=== PATIENT | female | born 1975 | race Caucasian/White ===

== ENCOUNTER 2023-12-07 13:21 | Outpatient (OUT) | payer BC, SELFPAY ==
--- NOTE | 2023-12-07 13:39 | XR_ITS ---
The [address] [address] Patient Name: JESUSITA ALAN MRN: [id number] date: 1975 Sex: F Assigned Patient Location: RAD Current Patient Location: [facility] Accession/Order Number: [id number] Exam Date: 12/07/2023 13:42 Report Date: 12/07/2023 14:02 At the request of: NON-STAFF PHYSICIAN Procedure: XR elbow LT min 3V Exam: Radiographs: XR elbow LT min 3V Reason for exam: Left Elbow Pain M25.522 Comparison: None XR/XR elbow LT min 3V IMPRESSION: Unremarkable left elbow radiographs. Electronically authenticated by: AUGUSTINE FISHER Date: 12/07/2023 14:02
== END 2023-12-07 13:22 | disposition home or self-care (01) ==
LOC: RAD 13:29
DX: M25.522 Pain in left elbow (principal)
CPT/HCPCS: 73080

== ENCOUNTER 2024-04-02 18:47 | Emergency (ER) | payer OTHER, SELFPAY ==
[2024-04-02] VITALS (10 sets, daily range): BP systolic 123–144; BP diastolic 80–89; PULSE 95–108; TEMP 36.6; O2SAT 96–98; BMI 29.8
--- OUTSIDE RECORDS SUMMARY | 2024-04-02 19:02 | XMS_ITS | CCD ---
Author Organization [facility] Care Team Providers Care Accounting Auditor Name Role Phone [facility], Services Primary Care Provider [phone] Spasic, KILN PUSHER-C Emelyn Lobato Attending Provider Collin Pratt Attending Unavailable [facility], Services Primary Care Provider JUAN DANIEL Perez Emergency Provider Spasic, KILN PUSHER-C Emelyn Lobato Attending Provider Spasic, KILN PUSHER-C Emelyn E Attending Provider NO FAMILY, PHYSICIAN Primary Care Provider Unava ilable Spasic, KILN PUSHER-C Emelyn E Attending Provider Spasic, KILN PUSHER-C Emelyn E Attending Provider Spasic, KILN PUSHER-C Emelyn E Primary Care Provider [phone] Bullimore, BATHROOM TILING PROFESSIONAL-BC Kathi E Emergency Provider Bullphilippore, Kathi E Admitting Unavailable Bullimore, Kathi E Attending Unavailable Spasic, Emelyn E Primary Care Unavailable Spasic, Emelyn E Admitting Unavailable Spasic, Emelyn E Attending Unavailable Spasic, Emelyn E Admitting Unavailable Spasic, Emelyn E Attending Unavailable Spasic, Emelyn E Admitting Unavailable Spasic, Emelyn E Attending Unavailable [facility] Primary Care Unavaila ble Spasic, Emelyn E Admitting Unavailable Spasic, Emelyn E Attending Unavailable NO FAMILY, PHYSICIAN Primary Care Unavailable Spasic, Emelyn E Admitting Unavailable Spasic, Emelyn E Attending Unavailable Spasic, Emelyn E Admitting Unavailable Spasic, Emelyn E Attending Unavailable [facility], Services Primary Care Unavaila ble Allergies Allergy Classification Reported Allergen(s) Allergy Type Date of Onset Reaction(s) Facility (1 source) Amoxicillin Drug Allergy 2 Gastrointestinal Upset [facility] Medications Current Medications Medication Drug Class(es) Dates Sig (Normalized) Sig (Original) empagliflozin 10 mg oral tablet (8 sources) Sodium-Glucose Cotransporter 2 Inhibitor Start: 02-14-2024 take 1 tablet by mouth once daily Empagliflozin (Jardiance) 10 mg tablet Active 10 MG PO Daily February 14, 2024 12:00am Start: 03-31-2022 End: 02-14-2024 take 1 tablet by mouth once daily Empagliflozin (Jardiance) 25 mg tablet Discontinued 25 MG PO Daily March 31, 2022 12:00am February 14, 2024 2:37pm Tirzepatide (2 sources) Start: 02-14-2024 Tirzepatide (M ounjaro) 5 mg/0.5 mL pen injector Active 5 MG SUBCUT every week 2 February 14, 2024 4:47pm Start: 02-14-2024 End: 02-14-2024 Tirzepatide (Mounjaro) 5 mg/ 0.5 mL pen injector Discontinued 5 MG SUBCUT every week February 14, 2024 12:00am February 14, 2024 4:47pm Completed/Discontinued Medications Medication Drug Class(es) Dates Sig (Normalized) Sig (Original) acetaminophen 325 mg / HYDROcodone bitartrate 5 mg oral tablet (7 sources) Opioid Agonist Start: 02-16-2018 End: 02-20-2018 take 1 tablet by mouth every eight hours Hydrocodone-Aceta minophen (Benton) 5-325 mg tablet Discontinued 1 TAB PO Q8H 10 4 February 16, 2018 February 20, 2018 12:01am ALPRAZolam 1 mg oral tablet (7 sources) Benzodiazepine Start: 01-27-2018 End: 02-03-2019 take 1 mg by mouth every four hours Alprazolam Discontinued 1 MG PO Q4H January 27, 2018 12:00am February 03, 2019 12:21am amoxicillin 875 mg oral tablet (7 sources) Penicillin-class Antibacterial Start: 10-10-2019 End: 12-16-2019 take 875 mg by mouth twice daily Amoxicillin Discontinued 875 MG PO Twice daily 19 08October 10, 2019 1:00am December 16, 2019 8:09pm aspirin 81 mg chewable tablet (7 sources) Platelet Aggregation Inhibitor, Nonsteroidal Anti-inflammatory Drug Start: 02-01-2018 End: 02-14-2024 take 81 mg by mouth once daily Aspirin Discontinued 81 MG PO Daily 0 February 01, 2018 12:00am February 14, 2024 2:34pm atorvastatin 40 mg oral tablet (14 sources) HMG-CoA Reductase Inhibitor Start: 06-11-2021 End: 02-14-2024 take 80 mg by mouth once daily in the evening Atorvastatin Discontinued 80 MG PO Every evening June 11, 2021 10:07pm February 14, 2024 2:35pm Start: 02-01-2018 End: 06-11-2021 take 40 mg by mouth once daily in the evening Atorvastatin Discontinued 40 MG PO Every evening February 01, 2018 12:00am June 11, 2021 10:07pm 12 hr buPROPion hydrochloride 200 mg extended release oral tablet (14 sources) Aminoketone Start: 03-31-2022 End: 02-14-2024 take 200 mg by mouth twice daily Bupropion Hcl Discontinued 200 MG PO Twice daily March 31, 2022 12:00am February 14, 2024 2:35pm Start: 11-20-2017 End: 06-24-2018 take 150 mg by mouth twice daily Bupropion Hcl Discontinued 150 MG PO Twice daily November 20, 2017 1:00am June 24, 2018 5:11pm cetirizine hydrochloride 10 mg oral capsule (7 sources) Histamine-1 Receptor Antagonist Start: 10-10-2019 End: 12-16-2019 take 1 capsule by mouth once daily Cetirizine (Zyrtec) 10 mg capsule Discontinued 10 MG PO Daily October 10, 2019 1:00am December 16, 2019 9:34pm ciprofloxacin 2 mg/ml otic solution (7 sources) Quinolone Antimicrobial Start: 10-10-2019 End: 12-16-2019 Ciprofloxacin Hcl Discontinued 5 DROPS EAR-LEFT Twice daily 14 October 10, 2019 1:00am December 16, 2019 9:34pm clopidogrel 75 mg oral tablet (7 sources) P2Y12 Platelet Inhibitor Start: 12-16-2019 End: 02-14-2024 take 1 tablet by mouth once daily Clopidogrel (Plavix) 75 mg Tablet Discontinued 75 MG PO Daily December 16, 2019 1:00am February 14, 2024 2:35pm cyclobenzaprine hydrochloride 10 mg oral tablet (7 sources) Muscle Relaxant Start: 01-30-2018 End: 02-03-2019 take 10 mg by mouth at bedtime Cyclobenzaprine Discontinued 10 MG PO Bedtime January 30, 2018 12:00am February 03, 2019 12:21am ezetimibe 10 mg oral tablet (7 sources) Dietary Cholesterol Absorption Inhibitor Start: 03-31-2022 End: 02-14-2024 take 10 mg by mouth once daily Ezetimibe Discontinued 10 MG PO Daily March 31, 2022 12:00am February 14, 2024 2:37pm Fish Oil-Dha-Epa (7 sources) Start: 12-14-2017 End: 02-03-2019 take 1 tablet by mouth once daily Fish Oil-Dha-Epa Discontinued 1 TAB PO Daily December 14, 2017 1:00am February 03, 2019 12:21am Start: 12-14-2017 End: 02-03-2019 take 1 tablet by mouth once daily Fish Oil-Dha-Epa Discontinued 1 TAB PO Daily December 14, 2017 12:00am February 02, 2019 11:21pm flibanserin 100 mg oral tablet (7 sources) Start: 06-11-2021 End: 03-31-2022 take 1 tablet by mouth once daily at bedtime Flibanserin (Addyi) 100 mg tablet Discontinued 100 MG PO Daily at bedtime June 11, 2021 12:00am March 31, 2022 10:28pm fluconazole 150 mg oral tablet (7 sources) Azole Antifungal Start: 12-17-2019 End: 06-11-2021 take 1 tablet by mouth once daily Fluconazole (Diflucan) 150 mg tablet Discontinued 150 MG PO Daily 2 2 December 17, 2019 1:00am June 11, 2021 10:05pm FLUoxetine 20 mg oral tablet (14 sources) Serotonin Reuptake Inhibitor Start: 01-27-2018 End: 06-24-2018 take 20 mg by mouth once daily Fluoxetine Discontinued 20 MG PO Daily January 30, 2018 12:00am June 24, 2018 5:11pm fluticasone propionate 0.05 mg/actuat metered dose nasal spray (7 sources) Corticosteroid Start: 10-10-2019 End: 12-16-2019 take 1 spray(s) nasal route every twelve hours Fluticasone Propionate (Flonase Allergy Relief) 50 mcg/actuation spray,suspension Discontinued 1 SPRAY INTRANASAL Q12H 18.2 October 10, 2019 1:00am December 16, 2019 9:34pm administer into each nostril glipiZIDE 10 mg oral tablet (7 sources) Sulfonylurea Start: 12-17-2019 End: 02-14-2024 take 10 mg by mouth twice daily at dinner Glipizide Discontinued 10 MG PO Twice daily 60 December 17, 2019 1:00am February 14, 2024 2:37pm breakfast and dinner ketorolac tromethamine 10 mg oral tablet (7 sources) Nonsteroidal Anti-inflammatory Drug, Cyclooxygenase Inhibitor Start: 02-03-2019 End: 12-16-2019 take 10 mg by mouth every six hours Ketorolac Discontinued 10 MG PO Q6H 20 5 February 03, 2019 12:00am December 16, 2019 9:34pm levothyroxine sodium 0.125 mg oral tablet (7 sources) l-Thyroxine Start: 11-20-2017 End: 02-14-2024 take 175 ug by mouth once daily Levothyroxine Discontinued 175 MCG PO Daily November 20, 2017 1:00am February 14, 2024 2:38pm lisinopril 10 mg oral tablet (14 sources) Angiotensin Converting Enzyme Inhibitor Start: 03-31-2022 End: 02-14-2024 take 20 mg by mouth once daily Lisinopril Discontinued 20 MG PO Daily March 31, 2022 10:29pm February 14, 2024 2:38pm Start: 02-01-2018 End: 03-31-2022 take 10 mg by mouth once daily Lisinopril Discontinued 10 MG PO Daily 30 February 01, 2018 12:00am March 31, 2022 10:30pm melatonin 5 mg oral tablet (7 sources) Start: 01-30-2018 End: 02-03-2019 take 5 mg by mouth at bedtime Melatonin Discontinued 5 MG PO Bedtime January 30, 2018 12:00am February 03, 2019 12:21am metFORMIN hydrochloride 500 mg oral tablet (14 sources) Biguanide Start: 12-16-2019 End: 02-14-2024 take 1000 mg by mouth twice daily Metformin Discontinued 1000 MG PO Twice daily December 16, 2019 1:00am February 14, 2024 2:38pm Start: 01-27-2018 End: 12-16-2019 take 500 mg by mouth once daily Metformin Discontinued 500 MG PO Daily January 27, 2018 12:00am December 16, 2019 9:35pm metoprolol tartrate 25 mg oral tablet (7 sources) beta-Adrenergic Reva Start: 02-01-2018 End: 02-14-2024 take 12.5 mg by mouth twice daily Metoprolol Tartrate Discontinued 12.5 MG PO Twice daily February 01, 2018 12:00am February 14, 2024 2:38pm nitroglycerin 0.4 mg sublingual tablet (7 sources) Nitrate Vasodilator Start: 02-01-2018 End: 02-03-2019 Nitroglycerin Discontinued 0.4 MG SUBLINGUAL Q5M February 01, 2018 12:00am February 03, 2019 12:21am oxaprozin 600 mg oral tablet (7 sources) Nonsteroidal Anti-inflammatory Drug Start: 11-20-2017 End: 12-14-2017 take 600 mg by mouth once daily Oxaprozin Discontinued 600 MG PO Daily November 20, 2017 1:00am December 14, 2017 3:25pm sertraline 50 mg oral tablet (7 sources) Serotonin Reuptake Inhibitor Start: 11-20-2017 End: 12-14-2017 take 50 mg by mouth once daily Sertraline Discontinued 50 MG PO Daily November 20, 2017 1:00am December 14, 2017 3:25pm ticagrelor 90 mg oral tablet (7 sources) Start: 02-01-2018 End: 02-03-2019 take 1 tablet by mouth twice daily Ticagrelor (Brilinta) 90 mg Tablet Discontinued 90 MG PO Twice daily 180 90 February 01, 2018 12:00am February 03, 2019 12:21am vitamin b12 2 mg extended release oral tablet (7 sources) Vitamin B12 Start: 12-14-2017 End: 02-03-2019 take 1 tablet by mouth once daily Cyanocobalamin (Vitamin B-12) (Vitamin B-12) 2,000 mcg Tablet Extended Release Discontinued 2000 MCG PO Daily December 14, 2017 1:00am February 03, 2019 12:21am vitamin e 180 mg oral capsule (7 sources) Start: 12-14-2017 End: 02-03-2019 take 400 [IU] by mouth once daily Vitamin E Discontinued 400 UNIT PO Daily December 14, 2017 1:00am February 03, 2019 12:21am Problems Active Problems Problem Classification Problem Date Documented Da te Episodic/Chronic Acute myocardial infarction (7 sources) Acute non-ST segment elevation myocardial infarction; Translations: [Non-ST elevation (NSTEMI) myocardial infarction] 02-01-2018 Chronic Anxiety disorders (7 sources) Mixed anxiety and depressive disorder; Translations: [Other specified anxiety disorders] 02-01-2018 Chronic Complications of surgical procedures or medical care (1 source) Postprocedural hypothyroidism; Translations: [Postprocedural hypothyroidism] Onset: 12-07-2023 Chronic Coronary atherosclerosis and other heart disease (7 sources) Acute coronary syndrome; Translations: [Acute ischemic heart disease, unspecified] 02-01-2018 Chronic Diabetes mellitus with complications (2 sources) Type 2 diabetes mellitus with hyperglycemia; Translations: [Type 2 diabetes mellitus with unspecified complications] Onset: 10-11-2023 Chronic Diabetes mellitus without complication (9 sources) Type 2 diabetes mellitus; Translations: [Type 2 diabetes mellitus without complications] Onset: 03-03-2023 02-01-2018 Chronic Diabetes mellitus without complication (8 sources) Acute hyperglycemia; Translations: [Hyperglycemia, unspecified] 12-16-2019 Episodic Disorders of lipid metabolism (7 sources) Hyperlipidemia; Translations: [Hyperlipidemia, unspecified] 02-01-2018 Chronic E Codes: Adverse effects of medical drugs (7 sources) Adverse reaction to drug; Translations: [Adverse effect of unspecified drugs, medicaments and biological substances, initial encounter] 06-11-2021 Episodic Essential hypertension (8 sources) Hypertensive disorder; Translations: [Essential (primary) hypertension] Onset: 03-03-2023 02-01-2018 Chronic Nonspecific chest pain (7 sources) Chest pain; Translations: [Chest pain, unspecified] 04-01-2022 Episodic Nutritional deficiencies (1 source) Vitamin D deficiency, unspecified; Translations: [Vitamin D deficiency, unspecified] Onset: 03-03-2023 Chronic Other ear and sense organ disorders (7 sources) Otitis externa; Translations: [Unspecified otitis externa, unspecified ear] 10-10-2019 Chronic Other nutritional; endocrine; and metabolic disorders (7 sources) Obesity; Translations: [Obesity, unspecified] 02-01-2018 Chronic Other upper respiratory infections (7 sources) Pharyngitis; Translations: [Acute pharyngitis, unspecified] 10-10-2019 Episodic Residual codes; unclassified (7 sources) Left against medical advice; Translations: [Procedure and treatment not carried out because of patient's decision for other reasons] 02-01-2018 Episodic Residual codes; unclassified (7 sources) Tobacco user; Translations: [Tobacco use] 02-01-2018 Episodic Residual codes; unclassified (6 sources) Exposure to carbon monoxide; Translations: [Contact with and (suspected) exposure to other hazardous substances] 02-24-2023 Episodic Sprains and strains (7 sources) Strain of neck muscle; Translations: [Strain of muscle, fascia and tendon at neck level, initial encounter] 02-16-2018 Episodic Thyroid disorders (7 sources) Hypothyroidism; Translations: [Hypothyroidism, unspecified] 02-01-2018 Chronic Unclassified (1 source) Acute cough; Translations: [Acute cough] Onset: 04-04-2023 Unclassified (1 source) Otorrhea, left ear; Translations: [Otorrhea, left ear] Onset: 03-03-2023 Past or Other Problems Problem Classification Problem Date Documented Da te Episodic/Chronic Other skin disorders (1 source) Nonscarring hair loss, unspecified; Translations: [Nonscarring hair loss, unspecified] Onset: 11-22-2023 Episodic Results Test Name Value Interpretation Reference Range Facility Alanine aminotransferase [En zymatic activity/volume] in Serum or PlasmaOrdered By: Kathi Mendozaore on 02-14-2024 ALT [Catalytic activity/Vol] 33 U/L 7-52 [facility] Albumin [Mass/volume] in Ser um or Plasma by Bromocresol green (BCG) dye binding methoOrdered By: Kathi Bullimore on 02-14-2024 Albumin BCG dye [Mass/Vol] 4.3 g/dL 3.5-5.7 [facility] Alkaline phosphatase [Enzyma tic activity/volume] in Serum or PlasmaOrdered By: Kathi Bullimore on 02-14-2024 ALP [Catalytic activity/Vol] 122 U/L 34-104 [facility] Aspartate aminotransferase [ Enzymatic activity/volume] in Serum or PlasmaOrdered By: Kathi Bullimore on 02-14-2024 AST [Catalytic activity/Vol] 22 U/L 13-39 [facility] Basophils Auto (Bld) [#/Vol] Ordered By: Kathi Bullimore on 02-14-2024 Basophils (Bld) [#/Vol] 0.1 10*3/uL 0.0-0.2 [facility] Basophils/100 WBC Auto (Bld) Ordered By: Kathi Bullimore on 02-14-2024 Basophils/100 WBC (Bld) 1.0 % . [facility] Beta Hydroxybuterateon 02-13 Beta Hydroxybuterate 0.12 mmol/L Normal 0.02-0.27 [facility] Comment on above: Result Comment: PERF ORMED BY: [place] [address] PATHOLOGIST FINAL APPLICATION REVIEWER MARTIR SEALS M.D. Performed By: #### C USUP, LIPID, CBC, CMP, [id number], TSH3 wRFLX #### [address] Beta hydroxybutyrate [Moles/ volume] in Serum or PlasmaOrdered By: Kathi Bullimore on 02-14-2024 Beta hydroxybutyrate [Moles/Vol] 0.12 mmol/L 0.02-0.27 [facility] Bilirubin Test strip Ql (U)O rdered By: Kathi Bullimore on 02-14-2024 Bilirubin Ql (U) Negative Negative [facility] Bilirubin.total [Mass/volume ] in Serum or PlasmaOrdered By: Kathi Bullimore on 02-14-2024 Bilirubin [Mass/Vol] 0.5 mg/dL 0.3-1.0 [facility] Calcium [Mass/volume] in Ser um or PlasmaOrdered By: Kathi Bullimore on 02-14-2024 Calcium [Mass/Vol] 9.2 mg/dL 8.6-10.3 [facility] Carbon dioxide, total [Moles /volume] in Serum or PlasmaOrdered By: Kathi Bullimore on 02-14-2024 CO2 [Moles/Vol] 24.9 mmol/L 21.0-31.0 [facility] Chloride [Moles/volume] in S lakeshia or PlasmaOrdered By: Kathi St on 02-14-2024 Chloride [Moles/Vol] 98 mmol/L 98-107 [facility] Color Auto (U)Ordered By: Gypsy kevin Bullimore on 02-14-2024 Color (U) Yellow Yellow [facility] Complete Blood Count Auto Di ffon 02-14-2024 Basophils (Bld) [#/Vol] 0.1 10*3/uL Normal 0.0-0.2 [facility] Comment on above: Result Comment: PERF ORMED BY: [place] [address] PATHOLOGIST FINAL APPLICATION REVIEWER MATRIR SEALS M.D. Performed By: #### C USUP, LIPID, CBC, CMP, [id number], TSH3 wRFLX #### [address] Basophils/100 WBC (Bld) 1.0 % Normal . T rachelle [facility] Comment on above: Performed By: #### C USUP, LIPID, CBC, CMP, [id number], TSH3 wRFLX #### [place] [address] [place] Eosinophils (Bld) [#/Vol] 0.2 10*3/uL Normal 0.0-0.45 [facility] Comment on above: Performed By: #### C USUP, LIPID, CBC, CMP, [id number], TSH3 wRFLX #### [address] Eosinophils/100 WBC (Bld) 1.7 % Normal . [facility] Comment on above: Performed By: #### C USUP, LIPID, CBC, CMP, [id number], TSH3 wRFLX #### [address] Erythrocyte distribution width (RBC) [Ratio] 14.6 % Normal 11.9-15.3 [facility] Comment on above: Performed By: #### C USUP, LIPID, CBC, CMP, [id number], TSH3 wRFLX #### [address] Hematocrit (Bld) [Volume fraction] 43.4 % Normal 34.0-46.4 [facility] Comment on above: Performed By: #### C USUP, LIPID, CBC, CMP, [id number], TSH3 wRFLX #### [address] Hemoglobin (Bld) [Mass/Vol] 14.6 g/dL Normal 11.8-15.4 [facility] Comment on above: Performed By: #### C USUP, LIPID, CBC, CMP, [id number], TSH3 wRFLX #### [address] Lymphocytes (Bld) [#/Vol] 2.0 10*3/uL Normal 1.00-4.8 [facility] Comment on above: Performed By: #### C USUP, LIPID, CBC, CMP, [id number], TSH3 wRFLX #### [address] Lymphocytes/100 WBC (Bld) 19.2 % Normal . [facility] Comment on above: Performed By: #### C USUP, LIPID, CBC, CMP, [id number], TSH3 wRFLX #### [address] MCH (RBC) [Entitic mass] 26.4 pg Normal 24.7-34.3 [facility] Comment on above: Performed By: #### C USUP, LIPID, CBC, CMP, [id number], TSH3 wRFLX #### [address] MCV (RBC) [Entitic vol] 78.8 fL Low 80-100 [facility] Comment on above: Performed By: #### C USUP, LIPID, CBC, CMP, [id number], TSH3 wRFLX #### [address] Mean Corpuscular HGB Conc 33.6 g/dL Normal 32.0-35.0 [facility] Comment on above: Performed By: #### C USUP, LIPID, CBC, CMP, [id number], TSH3 wRFLX #### [address] Monocytes (Bld) [#/Vol] 0.6 10*3/uL Normal 0.0-0.8 [facility] Comment on above: Performed By: #### C USUP, LIPID, CBC, CMP, [id number], TSH3 wRFLX #### [place] [address] [place] Monocytes/100 WBC (Bld) 18.11 % Normal 0.00-20.00 [facility] Comment on above: Performed By: #### C USUP, LIPID, CBC, CMP, [id number], TSH3 wRFLX #### [place] [address] [place] Monocytes/100 WBC (Bld) 5.7 % Normal . [facility] Comment on above: Performed By: #### C USUP, LIPID, CBC, CMP, [id number], TSH3 wRFLX #### [place] [address] [place] Neutrophils (Bld) [#/Vol] 7.6 10*3/uL Normal 1.8-7.7 [facility] Comment on above: Performed By: #### C USUP, LIPID, CBC, CMP, [id number], TSH3 wRFLX #### [place] [address] [place] Neutrophils/100 WBC (Bld) 72.4 % Normal . [facility] Comment on above: Performed By: #### C USUP, LIPID, CBC, CMP, [id number], TSH3 wRFLX #### [place] [address] [place] NRBC% 0.1 /100{WBC} Normal 0-0.5 [facility] Comment on above: Performed By: #### C USUP, LIPID, CBC, CMP, [id number], TSH3 wRFLX #### [address] Platelet mean volume (Bld) [Entitic vol] 9.4 fL Normal 6.3-10.7 [facility] Comment on above: Performed By: #### C USUP, LIPID, CBC, CMP, [id number], TSH3 wRFLX #### [address] Platelets (Bld) [#/Vol] 300 10*3/uL Normal 150-450 [facility] Comment on above: Performed By: #### C USUP, LIPID, CBC, CMP, [id number], TSH3 wRFLX #### [address] RBC (Bld) [#/Vol] 5.50 10*6/uL High 3.60-5.00 [facility] Comment on above: Performed By: #### C USUP, LIPID, CBC, CMP, [id number], TSH3 wRFLX #### [address] WBC (Bld) [#/Vol] 10.5 10*3/uL Normal 3.8-11.6 [facility] Comment on above: Performed By: #### C USUP, LIPID, CBC, CMP, [id number], TSH3 wRFLX #### [address] Comprehensive Metabolic Pane cheryl 02-14-2024 Albumin [Mass/Vol] 4.3 g/dL Normal 3.5-5.7 [facility] Comment on above: Performed By: #### C USUP, LIPID, CBC, CMP, [id number], TSH3 wRFLX #### [address] Albumin/Globulin [Mass ratio] 1.5 {ratio} Normal [facility] Comment on above: Performed By: #### C USUP, LIPID, CBC, CMP, [id number], TSH3 wRFLX #### [address] ALP [Catalytic activity/Vol] 122 U/L High 34-104 [facility] Comment on above: Performed By: #### C USUP, LIPID, CBC, CMP, [id number], TSH3 wRFLX #### [address] ALT [Catalytic activity/Vol] 33 U/L Normal 7-52 [facility] Comment on above: Performed By: #### C USUP, LIPID, CBC, CMP, [id number], TSH3 wRFLX #### [address] Anion gap [Moles/Vol] 12.0 mmol/L Normal 6.0-15.0 [facility] Comment on above: Performed By: #### C USUP, LIPID, CBC, CMP, [id number], TSH3 wRFLX #### [address] AST [Catalytic activity/Vol] 22 U/L Normal 13-39 [facility] Comment on above: Performed By: #### C USUP, LIPID, CBC, CMP, [id number], TSH3 wRFLX #### [address] Bilirubin [Mass/Vol] 0.5 mg/dL Normal 0.3-1.0 [facility] Comment on above: Performed By: #### C USUP, LIPID, CBC, CMP, [id number], TSH3 wRFLX #### [address] Calcium [Mass/Vol] 9.2 mg/dL Normal 8.6-10.3 [facility] Comment on above: Performed By: #### C USUP, LIPID, CBC, CMP, [id number], TSH3 wRFLX #### [address] Chloride [Moles/Vol] 98 mmol/L Normal 98-107 [facility] Comment on above: Performed By: #### C USUP, LIPID, CBC, CMP, [id number], TSH3 wRFLX #### [address] CO2 [Moles/Vol] 24.9 mmol/L Normal 21.0-31.0 [facility] Comment on above: Performed By: #### C USUP, LIPID, CBC, CMP, [id number], TSH3 wRFLX #### [address] Creatinine [Mass/Vol] 0.77 mg/dL Normal 0.60-1.20 [facility] Comment on above: Performed By: #### C USUP, LIPID, CBC, CMP, [id number], TSH3 wRFLX #### [address] Creatinine Clr Calc Pharmacy 89.37 Normal [facility] Comment on above: Performed By: #### C USUP, LIPID, CBC, CMP, [id number], TSH3 wRFLX #### [address] GFR/1.73 sq M.predicted MDRD (S/P/Bld) [Vol rate/Area] mL/min/{1.73_m2} Normal [facility] Comment on above: Performed By: #### C USUP, LIPID, CBC, CMP, [id number], TSH3 wRFLX #### [address] Globulin (S) [Mass/Vol] 2.8 g/dL Normal [facility] Comment on above: Performed By: #### C USUP, LIPID, CBC, CMP, [id number], TSH3 wRFLX #### [address] Glucose [Mass/Vol] 448 mg/dL High 70-100 [facility] Comment on above: Result Comment: [place] Glucose Reference Range is dependent on time and content of last meal. Glucose of more than 200 mg/dL in a nonstressed, ambulatory subject supports the diagnosis of Diabetes Mellitus. ADA recommended reference range Performed By: #### C USUP, LIPID, CBC, CMP, [id number], TSH3 wRFLX #### [address] Potassium [Moles/Vol] 3.9 mmol/L Normal 3.5-5.1 [facility] Comment on above: Performed By: #### C USUP, LIPID, CBC, CMP, [id number], TSH3 wRFLX #### [address] Protein [Mass/Vol] 7.1 g/dL Normal 6.4-8.9 [facility] Comment on above: Performed By: #### C USUP, LIPID, CBC, CMP, [id number], TSH3 wRFLX #### [address] Sodium [Moles/Vol] 131 mmol/L Low 136-145 [facility] Comment on above: Performed By: #### C USUP, LIPID, CBC, CMP, [id number], TSH3 wRFLX #### [address] Urea nitrogen [Mass/Vol] 11 mg/dL Normal 7-25 [facility] Comment on above: Performed By: #### C USUP, LIPID, CBC, CMP, [id number], TSH3 wRFLX #### [address] Creatinine [Mass/volume] in Serum or PlasmaOrdered By: Kathi Bullimore on 02-14-2024 Creatinine [Mass/Vol] 0.77 mg/dL 0.60-1.20 [facility] Eosinophils Auto (Bld) [#/Vo l]Ordered By: Kathi Bullimore on 02-14-2024 Eosinophils (Bld) [#/Vol] 0.2 10*3/uL 0.0-0.45 [facility] Eosinophils/100 WBC Auto (Bl d)Ordered By: Kathi Bullimore on 02-14-2024 Eosinophils/100 WBC (Bld) 1.7 % . [facility] Erythrocyte distribution wid th Auto (RBC) [Ratio]Ordered By: Kathi St on 02-14-2024 Erythrocyte distribution width (RBC) [Ratio] 14.6 % 11.9-15.3 [facility] Globulin Calc (S) [Mass/Vol] Ordered By: Kathi St on 02-14-2024 Globulin (S) [Mass/Vol] 2.8 g/dL [facility] Glucose Glucometer (BldC) [M ass/Vol]Ordered By: Kathi St on 02-14-2024 Glucose [Mass/Vol] 217 mg/dL [facility] Comment on above: Random Glucose Refer ence Range is dependent on time and content of last meal. Glucose of more than 200 mg/dL in a nonstressed, ambulatory subject supports the diagnosis of Diabetes Mellitus. Glucose Poct Glucometerson 0 02-14-2024 Glucose [Mass/Vol] 217 mg/dL Normal [facility] Comment on above: Result Comment: [place]es om Glucose Reference Range is dependent on time and content of last meal. Glucose of more than 200 mg/dL in a nonstressed, ambulatory subject supports the diagnosis of Diabetes Mellitus. PERFORMED BY: [place] [address] PATHOLOGIST FINAL APPLICATION REVIEWER MARTIR SEALS M.D. Performed By: #### C USUP, LIPID, CBC, CMP, [id number], TSH3 wRFLX #### [address] Glucose [Mass/volume] in Ser um or PlasmaOrdered By: Kathi St on 02-14-2024 Glucose [Mass/Vol] 448 mg/dL 70-100 [facility] Comment on above: ADA recommended refe rence rangeRandom Glucose Reference Range is dependent on time and content of last meal. Glucose of more than 200 mg/dL in a nonstressed, ambulatory subject supports the diagnosis of Diabetes Mellitus. Hematocrit Auto (Bld) [Volum e fraction]Ordered By: Kathi St on 02-14-2024 Hematocrit (Bld) [Volume fraction] 43.4 % 34.0-46.4 [facility] Hemoglobin [Mass/volume] in BloodOrdered By: Kathi Bullimore on 02-14-2024 Hemoglobin (Bld) [Mass/Vol] 14.6 g/dL 11.8-15.4 [facility] Ketones Auto test strip (U) [Mass/Vol]Ordered By: Kathi Bullimore on 02-14-2024 Ketones (U) [Mass/Vol] Negative Negative [facility] Leukocytes [#/volume] correc sharita for nucleated erythrocytes in Blood by Automated counOrdered By: Kathi Bullimore on 02-14-2024 WBC corrected for nucl RBC Auto (Bld) [#/Vol] 10.5 10*3/uL 3.8-11.6 [facility] Lymphocytes Auto (Bld) [#/Vo l]Ordered By: Kathi Bullimore on 02-14-2024 Lymphocytes (Bld) [#/Vol] 2.0 10*3/uL 1.00-4.8 [facility] Lymphocytes/100 WBC Auto (Bl d)Ordered By: Kathi Bullimore on 02-14-2024 Lymphocytes/100 WBC (Bld) 19.2 % . [facility] MCH Auto (RBC) [Entitic mass ]Ordered By: Kathi Bullimore on 02-14-2024 MCH (RBC) [Entitic mass] 26.4 pg 24.7-34.3 [facility] MCHC Auto (RBC) [Mass/Vol]Or dered By: Kathi Bullimore on 02-14-2024 MCHC (RBC) [Mass/Vol] 33.6 g/dL 32.0-35.0 [facility] MCV Auto (RBC) [Entitic vol] Ordered By: Kathi Bullimore on 02-14-2024 MCV (RBC) [Entitic vol] 78.8 fL 80-100 [facility] Monocyte distribution width [Entitic volume] in Blood by AutomatedOrdered By: Kathi Bullimore on 02-14-2024 Monocyte distribution width Auto (Bld) [Entitic vol] 18.11 % 0.00-20.00 [facility] Monocytes Auto (Bld) [#/Vol] Ordered By: Kathi Bullimore on 02-14-2024 Monocytes (Bld) [#/Vol] 0.6 10*3/uL 0.0-0.8 [facility] Monocytes/100 WBC Auto (Bld) Ordered By: Kathi Bullimore on 02-14-2024 Monocytes/100 WBC (Bld) 5.7 % . [facility] Neutrophils Auto (Bld) [#/Vo l]Ordered By: Kathi Bullimore on 02-14-2024 Neutrophils (Bld) [#/Vol] 7.6 10*3/uL 1.8-7.7 [facility] Neutrophils/100 WBC Auto (Bl d)Ordered By: Kathi Bullimore on 02-14-2024 Neutrophils/100 WBC (Bld) 72.4 % . [facility] Nitrite Test strip Ql (U)Ord ered By: Kathi Jayimore on 02-14-2024 Nitrite Ql (U) Negative Negative [facility] No Panel InformationOrdered By: Kathi Jayimsarbjit on 02-14-2024 Estimated GFR (CKD-EPI) > 60.0 mL/Min [facility] Creatinine Clearance (Chem 89.37 [facility] Nucleated erythrocytes [Pres ence] in Blood by Automated countOrdered By: Kathi Jayimore on 02-14-2024 Nucleated RBC Auto Ql (Bld) 0.1 /100{WBC} 0-0.5 [facility] Platelet mean volume Auto (B ld) [Entitic vol]Ordered By: Kathi Bullimore on 02-14-2024 Platelet mean volume (Bld) [Entitic vol] 9.4 fL 6.3-10.7 [facility] Platelets Auto (Bld) [#/Vol] Ordered By: Kathi Bullimore on 02-14-2024 Platelets (Bld) [#/Vol] 300 10*3/uL 150-450 [facility] Potassium [Moles/volume] in Serum or PlasmaOrdered By: Kathi Bullimore on 02-14-2024 Potassium [Moles/Vol] 3.9 mmol/L 3.5-5.1 [facility] Protein Auto test strip (U) [Mass/Vol]Ordered By: Kathi Bullimore on 02-14-2024 Protein (U) [Mass/Vol] Negative Negative [facility] Protein [Mass/volume] in Ser um or PlasmaOrdered By: Kathi Jayimore on 02-14-2024 Protein [Mass/Vol] 7.1 g/dL 6.4-8.9 [facility] RBC Auto (Bld) [#/Vol]Ordere d By: Kathi Bullimore on 02-14-2024 RBC (Bld) [#/Vol] 5.50 10*6/uL 3.60-5.00 [facility] Serum or plasma albumin/glob ulin mass ratioOrdered By: Kathi Bullimore on 02-14-2024 Albumin/Globulin [Mass ratio] 1.5 {ratio} [facility] Serum or plasma anion gap de terminationOrdered By: Kathi Bullimore on 02-14-2024 Anion gap [Moles/Vol] 12.0 mmol/L 6.0-15.0 [facility] Sodium [Moles/volume] in Ser um or PlasmaOrdered By: Kathi Bullimore on 02-14-2024 Sodium [Moles/Vol] 131 mmol/L 136-145 [facility] Specific gravity Auto test s trip (U) [Rel density]Ordered By: Kathijabari Jaysarbjit on 02-14-2024 Specific gravity (U) [Rel density] 1.037 1.001-1.030 [facility] Urea nitrogen [Mass/volume] in Serum or PlasmaOrdered By: Kathijabari Jayimore on 02-14-2024 Urea nitrogen [Mass/Vol] 11 mg/dL 7-25 [facility] Urinalysison 02-14-2024 Appearance (U) Clear Normal Clear [facility] Comment on above: Order Comment: Reaso n for Exam Diabetes Performed By: #### C USUP, LIPID, CBC, CMP, [id number], TSH3 wRFLX #### [facility] [address] Bilirubin,Urine Negative Normal Negative [facility] Comment on above: Order Comment: Reaso n for Exam Diabetes Performed By: #### C USUP, LIPID, CBC, CMP, [id number], TSH3 wRFLX #### [address] Color (U) Yellow Normal Yellow [facility] Comment on above: Order Comment: Reaso n for Exam Diabetes Performed By: #### C USUP, LIPID, CBC, CMP, [id number], TSH3 wRFLX #### [facility] [address] [place] [address] Glucose Ql (U) >=1000 High Normal [facility] Comment on above: Order Comment: Reaso n for Exam Diabetes Performed By: #### C USUP, LIPID, CBC, CMP, [id number], TSH3 wRFLX #### [address] Ketones Ql (U) Negative Normal Negative [facility] Comment on above: Order Comment: Reaso n for Exam Diabetes Performed By: #### C USUP, LIPID, CBC, CMP, [id number], TSH3 wRFLX #### [address] Leukocyte esterase Test strip Ql (U) Negative Normal Negative [facility] Comment on above: Order Comment: Reaso n for Exam Diabetes Performed By: #### C USUP, LIPID, CBC, CMP, [id number], TSH3 wRFLX #### [address] Nitrite,Urine Negative Normal Negative [facility] Comment on above: Order Comment: Reaso n for Exam Diabetes Performed By: #### C USUP, LIPID, CBC, CMP, [id number], TSH3 wRFLX #### [address] Occult Blood,Urine Negative Normal Negative [facility] Comment on above: Order Comment: Reaso n for Exam Diabetes Result Comment: PERF ORMED BY: [place] [address] PATHOLOGIST FINAL APPLICATION REVIEWER MARTIR SEALS M.D. Performed By: #### C USUP, LIPID, CBC, CMP, [id number], TSH3 wRFLX #### [address] pH (U) 5.5 [pH] Normal 5.0-9.0 [facility] Comment on above: Order Comment: Reaso n for Exam Diabetes Performed By: #### C USUP, LIPID, CBC, CMP, [id number], TSH3 wRFLX #### [address] Protein,Urine Negative Normal Negative [facility] Comment on above: Order Comment: Reaso n for Exam Diabetes Performed By: #### C USUP, LIPID, CBC, CMP, [id number], TSH3 wRFLX #### [address] Specificy [place],Urine 1.037 High 1.001-1.030 [facility] Comment on above: Order Comment: Reaso n for Exam Diabetes Performed By: #### C USUP, LIPID, CBC, CMP, [id number], TSH3 wRFLX #### [address] Urobilinogen,Urine Normal Normal Normal [facility] Comment on above: Order Comment: Reaso n for Exam Diabetes Performed By: #### C USUP, LIPID, CBC, CMP, [id number], TSH3 wRFLX #### [address] Urine clarity by refractomet ry automatedOrdered By: Kathi St on 02-14-2024 Clarity Refractometry automated (U) Clear Clear [facility] Urine glucose measurement by automated test strip (mass/volume)Ordered By: Kathi St on 02-14-2024 Glucose Auto test strip (U) [Mass/Vol] >=1000 mg/dL Normal [facility] Urine hemoglobin detection b y automated test stripOrdered By: Kathi St on 02-14-2024 Hemoglobin Auto test strip Ql (U) Negative Negative [facility] Urine leukocyte esterase det ection by automated test stripOrdered By: Kathi St on 02-14-2024 Leukocyte esterase Auto test strip Ql (U) Negative Negative [facility] Urobilinogen Auto test strip (U) [Mass/Vol]Ordered By: Kathi St on 02-14-2024 Urobilinogen (U) [Mass/Vol] Normal mg/dL Normal [facility] WBC Auto (Bld) [#/Vol]Ordere d By: Kathi St on 02-14-2024 WBC (Bld) [#/Vol] 10.5 10*3/uL 3.8-11.6 [facility] pH Auto test strip (U)Ordere d By: Kathi St on 02-14-2024 pH (U) 5.5 [pH] 5.0-9.0 [facility] Free thyroxine indexOrdered By: Emelyn Velasquez on 12-07-2023 Free T4 index Calc [Mass/Vol] 2.2 1.2-4.9 [facility] No Panel InformationOrdered By: Emelyn Velasquez on 12-07-2023 Free Thyroxine (T4) Direct 8.8 ug/dL 4.5-12.0 [facility] T3 uptakeOrdered By: Emelyn lowry on 12-07-2023 T3RU 25 % 24-39 [facility] TSH DL <= 0.005 mIU/L QnOrde red By: Emelyn Velasquez on 12-07-2023 TSH Qn 2.030 m[IU]/L 0.450-4.500 [facility] Thyroid Profile IIon 024 Free Thyroxine Index 2.2 Normal 1.2-4.9 [facility] Comment on above: Order Comment: Reaso n for Exam Postoperative hypothyroidism Performed By: #### T HYROID PROF II #### [facility] [place] Triiodothyronine,(T3) 105 ng/dL Normal 71-180 [facility] Comment on above: Order Comment: Reaso n for Exam Postoperative hypothyroidism Result Comment: Perf ormed at: - [facility] [place] [address] [place], [place] [id number] Director Of Special Services: Micheal Swan PhD, Phone: [phone] Performed By: #### T HYROID PROF II #### [facility] , T4 [Mass/Vol] 8.8 ug/dL Normal 4.5-12.0 [facility] Comment on above: Order Comment: Reaso n for Exam Postoperative hypothyroidism Performed By: #### T HYROID PROF II #### [facility] , Triiodothryronine (T3) Uptake 25 % Normal 24-39 [facility] Comment on above: Order Comment: Reaso n for Exam Postoperative hypothyroidism Performed By: #### T HYROID PROF II #### [facility] , TSH Qn 2.030 m[IU]/L Normal 0.450-4.500 [facility] Comment on above: Order Comment: Reaso n for Exam Postoperative hypothyroidism Result Comment: PERF ORMED BY: [place] [address] PATHOLOGIST FINAL APPLICATION REVIEWER MARTIR SEALS M.D. Performed By: #### T HYROID PROF II #### [facility] , Triiodothyronine (T3) [Mass/ volume] in Serum or PlasmaOrdered By: Emelyn Velasquez on 12-07-2023 T3 [Mass/Vol] 105 ng/dL 71-180 [facility] Comment on above: Performed at: [address] [id number] Director: Micheal Swan PhD, Phone: [phone] Thyroid Stim Hormone w/Rflxo n 11-22-2023 Thyroid Stim Hormone w/Rflx 0.46 u[iU]/mL Normal 0.45-5.33 [facility] Comment on above: Order Comment: Reaso n for Exam Diabetes Reason for Exam Diabetes;Essential hypertension Reason for Exam Vitamin D deficiency Result Comment: PERF ORMED BY: [address] [address] PATHOLOGIST FINAL APPLICATION REVIEWER MARTIR SEALS M.D. Performed By: #### C USUP, LIPID, CBC, CMP, [id number], TSH3 wRFLX #### [address] Thyrotropin [Units/volume] i n Serum or PlasmaOrdered By: Emelyn Velasquez on 11-22-2023 TSH Qn 0.46 m[IU]/L 0.45-5.33 [facility] Alanine aminotransferase [En zymatic activity/volume] in Serum or PlasmaOrdered By: Emelyn Villanuevac on 10-11-2023 ALT [Catalytic activity/Vol] 13 U/L 7-52 [facility] Albumin [Mass/volume] in Ser um or Plasma by Bromocresol green (BCG) dye binding methoOrdered By: Emelyn Velasquez on 10-11-2023 Albumin BCG dye [Mass/Vol] 4.3 g/dL 3.5-5.7 [facility] Alkaline phosphatase [Enzyma tic activity/volume] in Serum or PlasmaOrdered By: Emelyn Velasquez on 10-11-2023 ALP [Catalytic activity/Vol] 93 U/L 34-104 [facility] Aspartate aminotransferase [ Enzymatic activity/volume] in Serum or PlasmaOrdered By: Emelyn Velasquez on 10-11-2023 AST [Catalytic activity/Vol] 12 U/L 13-39 [facility] Basophils Auto (Bld) [#/Vol] Ordered By: Emelyn Velasquez on 10-11-2023 Basophils (Bld) [#/Vol] 0.1 10*3/uL 0.0-0.2 [facility] Basophils/100 WBC Auto (Bld) Ordered By: Emelyn Velasquez on 10-11-2023 Basophils/100 WBC (Bld) 1.4 % . [facility] Bilirubin.total [Mass/volume ] in Serum or PlasmaOrdered By: Emelyn Velasquez on 10-11-2023 Bilirubin [Mass/Vol] 0.3 mg/dL 0.3-1.0 [facility] Calcium [Mass/volume] in Ser um or PlasmaOrdered By: Emelyn Velasquez on 10-11-2023 Calcium [Mass/Vol] 9.0 mg/dL 8.6-10.3 [facility] Carbon dioxide, total [Moles /volume] in Serum or PlasmaOrdered By: Emelyn Velasquez on 10-11-2023 CO2 [Moles/Vol] 27.6 mmol/L 21.0-31.0 [facility] Chloride [Moles/volume] in S lakeshia or PlasmaOrdered By: Emelyn Velasquez on 10-11-2023 Chloride [Moles/Vol] 107 mmol/L 98-107 [facility] Cholesterol [Mass/volume] in Serum or PlasmaOrdered By: Emelyn Velasquez on 10-11-2023 Cholesterol [Mass/Vol] 138 mg/dL 140-200 [facility] Comment on above: Chol less than 200 m g/dl low riskChol 201-239 mg/dl borderline riskChol 240 mg/dl and greater high risk Cholesterol in LDL Calc [Mas s/Vol]Ordered By: Emelyn Velasquez on 10-11-2023 Cholesterol in LDL [Mass/Vol] 75 mg/dL 0-100 [facility] Comment on above: LDL ATP III CLASSIFI CATIONLDL less than 100 mg/dL OptimalLDL 100-129 mg/dL Near or above optimalLDL 130-159 mg/dL Borderline highLDL 160-189 mg/dL HighLDL greater than 189 mg/dL Very high Cholesterol in VLDL Calc [Ma ss/Vol]Ordered By: Emelyn Velasquez on 10-11-2023 Cholesterol in VLDL [Mass/Vol] 32 mg/dL [facility] Complete Blood Count Auto Di ffon 10-11-2023 Basophils (Bld) [#/Vol] 0.1 10*3/uL Normal 0.0-0.2 [facility] Comment on above: Order Comment: Reaso n for Exam Diabetes Result Comment: PERF ORMED BY: [place] [address] PATHOLOGIST FINAL APPLICATION REVIEWER MARTIR SEALS M.D. Performed By: #### C USUP, LIPID, CBC, CMP, [id number], TSH3 wRFLX #### [address] Basophils/100 WBC (Bld) 1.4 % Normal . [facility] Comment on above: Order Comment: Reaso n for Exam Diabetes Performed By: #### C USUP, LIPID, CBC, CMP, [id number], TSH3 wRFLX #### [address] Eosinophils (Bld) [#/Vol] 0.2 10*3/uL Normal 0.0-0.45 [facility] Comment on above: Order Comment: Reaso n for Exam Diabetes Performed By: #### C USUP, LIPID, CBC, CMP, [id number], TSH3 wRFLX #### [address] Eosinophils/100 WBC (Bld) 3.0 % Normal . [facility] Comment on above: Order Comment: Reaso n for Exam Diabetes Performed By: #### C USUP, LIPID, CBC, CMP, [id number], TSH3 wRFLX #### [address] Erythrocyte distribution width (RBC) [Ratio] 15.0 % Normal 11.9-15.3 [facility] Comment on above: Order Comment: Reaso n for Exam Diabetes Performed By: #### C USUP, LIPID, CBC, CMP, [id number], TSH3 wRFLX #### [address] Hematocrit (Bld) [Volume fraction] 43.9 % Normal 34.0-46.4 [facility] Comment on above: Order Comment: Reaso n for Exam Diabetes Performed By: #### C USUP, LIPID, CBC, CMP, [id number], TSH3 wRFLX #### [address] Hemoglobin (Bld) [Mass/Vol] 14.4 g/dL Normal 11.8-15.4 [facility] Comment on above: Order Comment: Reaso n for Exam Diabetes Performed By: #### C USUP, LIPID, CBC, CMP, [id number], TSH3 wRFLX #### [address] Lymphocytes (Bld) [#/Vol] 1.7 10*3/uL Normal 1.00-4.8 [facility] Comment on above: Order Comment: Reaso n for Exam Diabetes Performed By: #### C USUP, LIPID, CBC, CMP, [id number], TSH3 wRFLX #### [address] Lymphocytes/100 WBC (Bld) 21.5 % Normal . [facility] Comment on above: Order Comment: Reaso n for Exam Diabetes Performed By: #### C USUP, LIPID, CBC, CMP, [id number], TSH3 wRFLX #### [address] MCH (RBC) [Entitic mass] 26.3 pg Normal 24.7-34.3 [facility] Comment on above: Order Comment: Reaso n for Exam Diabetes Performed By: #### C USUP, LIPID, CBC, CMP, [id number], TSH3 wRFLX #### [address] MCV (RBC) [Entitic vol] 80.5 fL Normal 80-100 [facility] Comment on above: Order Comment: Reaso n for Exam Diabetes Performed By: #### C USUP, LIPID, CBC, CMP, [id number], TSH3 wRFLX #### [address] Mean Corpuscular HGB Conc 32.7 g/dL Normal 32.0-35.0 [facility] Comment on above: Order Comment: Reaso n for Exam Diabetes Performed By: #### C USUP, LIPID, CBC, CMP, [id number], TSH3 wRFLX #### [address] Monocytes (Bld) [#/Vol] 0.6 10*3/uL Normal 0.0-0.8 [facility] Comment on above: Order Comment: Reaso n for Exam Diabetes Performed By: #### C USUP, LIPID, CBC, CMP, [id number], TSH3 wRFLX #### [address] Monocytes/100 WBC (Bld) 7.1 % Normal . [facility] Comment on above: Order Comment: Reaso n for Exam Diabetes Performed By: #### C USUP, LIPID, CBC, CMP, [id number], TSH3 wRFLX #### [place] [address] [place] Neutrophils (Bld) [#/Vol] 5.4 10*3/uL Normal 1.8-7.7 [facility] Comment on above: Order Comment: Reaso n for Exam Diabetes Performed By: #### C USUP, LIPID, CBC, CMP, [id number], TSH3 wRFLX #### [address] Neutrophils/100 WBC (Bld) 67.0 % Normal . [facility] Comment on above: Order Comment: Reaso n for Exam Diabetes Performed By: #### C USUP, LIPID, CBC, CMP, [id number], TSH3 wRFLX #### [address] NRBC% 0.1 /100{WBC} Normal 0-0.5 [facility] Comment on above: Order Comment: Reaso n for Exam Diabetes Performed By: #### C USUP, LIPID, CBC, CMP, [id number], TSH3 wRFLX #### [address] Platelet mean volume (Bld) [Entitic vol] 9.5 fL Normal 6.3-10.7 [facility] Comment on above: Order Comment: Reaso n for Exam Diabetes Performed By: #### C USUP, LIPID, CBC, CMP, [id number], TSH3 wRFLX #### [place] [address] [place] Platelets (Bld) [#/Vol] 246 10*3/uL Normal 150-450 [facility] Comment on above: Order Comment: Reaso n for Exam Diabetes Performed By: #### C USUP, LIPID, CBC, CMP, [id number], TSH3 wRFLX #### [place] [address] [place] RBC (Bld) [#/Vol] 5.46 10*6/uL High 3.60-5.00 [facility] Comment on above: Order Comment: Reaso n for Exam Diabetes Performed By: #### C USUP, LIPID, CBC, CMP, [id number], TSH3 wRFLX #### [address] WBC (Bld) [#/Vol] 8.1 10*3/uL Normal 3.8-11.6 [facility] Comment on above: Order Comment: Reaso n for Exam Diabetes Performed By: #### C USUP, LIPID, CBC, CMP, [id number], TSH3 wRFLX #### [address] Comprehensive Metabolic Pane [facility] 10-11-2023 Albumin [Mass/Vol] 4.3 g/dL Normal 3.5-5.7 [facility] Comment on above: Order Comment: Reaso n for Exam Diabetes Performed By: #### C USUP, LIPID, CBC, CMP, [id number], TSH3 wRFLX #### [address] Albumin/Globulin [Mass ratio] 1.7 {ratio} Normal [facility] Comment on above: Order Comment: Reaso n for Exam Diabetes Performed By: #### C USUP, LIPID, CBC, CMP, [id number], TSH3 wRFLX #### [address] ALP [Catalytic activity/Vol] 93 U/L Normal 34-104 [facility] Comment on above: Order Comment: Reaso n for Exam Diabetes Performed By: #### C USUP, LIPID, CBC, CMP, [id number], TSH3 wRFLX #### [place] [id number] [place] ALT [Catalytic activity/Vol] 13 U/L Normal 7-52 [facility] Comment on above: Order Comment: Reaso n for Exam Diabetes Performed By: #### C USUP, LIPID, CBC, CMP, [id number], TSH3 wRFLX #### [address] [place] [address] [place] Anion gap [Moles/Vol] 9.5 mmol/L Normal 6.0-15.0 [facility] Comment on above: Order Comment: Reaso n for Exam Diabetes Performed By: #### C USUP, LIPID, CBC, CMP, [id number], TSH3 wRFLX #### [address] AST [Catalytic activity/Vol] 12 U/L Low 13-39 [facility] Comment on above: Order Comment: Reaso n for Exam Diabetes Performed By: #### C USUP, LIPID, CBC, CMP, [id number], TSH3 wRFLX #### [address] Bilirubin [Mass/Vol] 0.3 mg/dL Normal 0.3-1.0 [facility] Comment on above: Order Comment: Reaso n for Exam Diabetes Performed By: #### C USUP, LIPID, CBC, CMP, [id number], TSH3 wRFLX #### [address] Calcium [Mass/Vol] 9.0 mg/dL Normal 8.6-10.3 [facility] Comment on above: Order Comment: Reaso n for Exam Diabetes Performed By: #### C USUP, LIPID, CBC, CMP, [id number], TSH3 wRFLX #### [address] Chloride [Moles/Vol] 107 mmol/L Normal 98-107 [facility] Comment on above: Order Comment: Reaso n for Exam Diabetes Performed By: #### C USUP, LIPID, CBC, CMP, [id number], TSH3 wRFLX #### [place] [address] [place] CO2 [Moles/Vol] 27.6 mmol/L Normal 21.0-31.0 [facility] Comment on above: Order Comment: Reaso n for Exam Diabetes Performed By: #### C USUP, LIPID, CBC, CMP, [id number], TSH3 wRFLX #### [facility] [address] Creatinine [Mass/Vol] 0.73 mg/dL Normal 0.60-1.20 [facility] Comment on above: Order Comment: Reaso n for Exam Diabetes Performed By: #### C USUP, LIPID, CBC, CMP, [id number], TSH3 wRFLX #### [facility] [address] [place] [address] [place] GFR/1.73 sq M.predicted MDRD (S/P/Bld) [Vol rate/Area] mL/min/{1.73_m2} Normal [facility] Comment on above: Order Comment: Reaso n for Exam Diabetes Performed By: #### C USUP, LIPID, CBC, CMP, [id number], TSH3 wRFLX #### [address] Globulin (S) [Mass/Vol] 2.5 g/dL Normal [facility] Comment on above: Order Comment: Reaso n for Exam Diabetes Performed By: #### C USUP, LIPID, CBC, CMP, [id number], TSH3 wRFLX #### [address] Glucose [Mass/Vol] 132 mg/dL High 70-100 [facility] Comment on above: Order Comment: Reaso n for Exam Diabetes Result Comment: Ulysses Glucose Reference Range is dependent on time and content of last meal. Glucose of more than 200 mg/dL in a nonstressed, ambulatory subject supports the diagnosis of Diabetes Mellitus. ADA recommended reference range Performed By: #### C USUP, LIPID, CBC, CMP, [id number], TSH3 wRFLX #### [facility] [address] [place] [address] [place] Potassium [Moles/Vol] 4.1 mmol/L Normal 3.5-5.1 [facility] Comment on above: Order Comment: Reaso n for Exam Diabetes Performed By: #### C USUP, LIPID, CBC, CMP, [id number], TSH3 wRFLX #### [place] [address] [place] Protein [Mass/Vol] 6.8 g/dL Normal 6.4-8.9 [facility] Comment on above: Order Comment: Reaso n for Exam Diabetes Performed By: #### C USUP, LIPID, CBC, CMP, [id number], TSH3 wRFLX #### [facility] [address] Sodium [Moles/Vol] 140 mmol/L Normal 136-145 [facility] Comment on above: Order Comment: Reaso n for Exam Diabetes Performed By: #### C USUP, LIPID, CBC, CMP, [id number], TSH3 wRFLX #### [facility] [address] Urea nitrogen [Mass/Vol] 9 mg/dL Normal 7-25 [facility] Comment on above: Order Comment: Reaso n for Exam Diabetes Performed By: #### C USUP, LIPID, CBC, CMP, [id number], TSH3 wRFLX #### [facility] [address] Creatinine [Mass/volume] in Serum or PlasmaOrdered By: Emelyn Velasquez on 10-11-2023 Creatinine [Mass/Vol] 0.73 mg/dL 0.60-1.20 [facility] Eosinophils Auto (Bld) [#/Vo l]Ordered By: Emelyn Velasquez on 10-11-2023 Eosinophils (Bld) [#/Vol] 0.2 10*3/uL 0.0-0.45 [facility] Eosinophils/100 WBC Auto (Bl d)Ordered By: Emelyn Velasquez on 10-11-2023 Eosinophils/100 WBC (Bld) 3.0 % . [facility] Erythrocyte distribution wid th Auto (RBC) [Ratio]Ordered By: Emelyn Velasquez on 10-11-2023 Erythrocyte distribution width (RBC) [Ratio] 15.0 % 11.9-15.3 [facility] Globulin Calc (S) [Mass/Vol] Ordered By: Emelyn Velasquez on 10-11-2023 Globulin (S) [Mass/Vol] 2.5 g/dL [facility] Glucose [Mass/volume] in Ser um or PlasmaOrdered By: Emelyn Velasquez on 10-11-2023 Glucose [Mass/Vol] 132 mg/dL 70-100 [facility] Comment on above: ADA recommended refe rence rangeRandom Glucose Reference Range is dependent on time and content of last meal. Glucose of more than 200 mg/dL in a nonstressed, ambulatory subject supports the diagnosis of Diabetes Mellitus. Hematocrit Auto (Bld) [Volum e fraction]Ordered By: Emelyn Velasquez on 10-11-2023 Hematocrit (Bld) [Volume fraction] 43.9 % 34.0-46.4 [facility] Hemoglobin [Mass/volume] in BloodOrdered By: Emelyn Velasquez on 10-11-2023 Hemoglobin (Bld) [Mass/Vol] 14.4 g/dL 11.8-15.4 [facility] Leukocytes [#/volume] correc sharita for nucleated erythrocytes in Blood by Automated counOrdered By: Emelyn Velasquez on 10-11-2023 WBC corrected for nucl RBC Auto (Bld) [#/Vol] 8.1 10*3/uL 3.8-11.6 [facility] Lipid Panelon 10-11-2023 Cholesterol [Mass/Vol] 138 mg/dL Low 140-200 [facility] Comment on above: Order Comment: Reaso n for Exam Diabetes Result Comment: Chol less than 200 mg/dl low risk Chol 201-239 mg/dl borderline risk Chol 240 mg/dl and greater high risk Performed By: #### C USUP, LIPID, CBC, CMP, [id number], TSH3 wRFLX #### [facility] [address] [place] [id number] [place] Cholesterol in HDL [Mass/Vol] 31 mg/dL Normal 23-92 [facility] Comment on above: Order Comment: Anoopo n for Exam Diabetes Result Comment: HDL CHOL ATP-III CLASSIFICATION Cardiovascular Risk HDL > or equal to 60 mg/dL LOW HDL < 40 mg/dL HIGH Performed By: #### C USUP, LIPID, CBC, CMP, [id number], TSH3 wRFLX #### [facility] [address] [place] [address] [place] Cholesterol.total/Choles terol in HDL [Mass ratio] 4.5 {ratio} Normal <5.0 [facility] Comment on above: Order Comment: Reaso n for Exam Diabetes Performed By: #### C USUP, LIPID, CBC, CMP, [id number], TSH3 wRFLX #### [address] LDL Cholesterol,Calculated 75 mg/dL Normal 0-100 [facility] Comment on above: Order Comment: Reaso n for Exam Diabetes Result Comment: LDL ATP III CLASSIFICATION LDL less than 100 mg/dL Optimal LDL 100-129 mg/dL Near or above optimal LDL 130-159 mg/dL Borderline high LDL 160-189 mg/dL High LDL greater than 189 mg/dL Very high Performed By: #### C USUP, LIPID, CBC, CMP, [id number], TSH3 wRFLX #### [address] Triglyceride w/Reflex 161 mg/dL High 0-149 [facility] Comment on above: Order Comment: Reaso n for Exam Diabetes Result Comment: TRIG ATP III CLASSIFICATION TRIG less than 150 mg/dL Normal TRIG 150-199 mg/dL Borderline high TRIG 200-500 mg/dL High TRIG greater than 500 mg/dL Very high Standard traceable to the Center for Disease Conrtrol and Prevention (CDC) test method. Performed By: #### C USUP, LIPID, CBC, CMP, [id number], TSH3 wRFLX #### [address] VLDL CHOLESTEROL 32 mg/dL Normal [facility] Comment on above: Order Comment: Reaso n for Exam Diabetes Performed By: #### C USUP, LIPID, CBC, CMP, [id number], TSH3 wRFLX #### [place] [address] [place] Lymphocytes Auto (Bld) [#/Vo l]Ordered By: Emelyn Velasquez on 10-11-2023 Lymphocytes (Bld) [#/Vol] 1.7 10*3/uL 1.00-4.8 [facility] Lymphocytes/100 WBC Auto (Bl d)Ordered By: Emelyn Velasquez on 10-11-2023 Lymphocytes/100 WBC (Bld) 21.5 % . [facility] MCH Auto (RBC) [Entitic mass ]Ordered By: Emelyn Velasquez on 10-11-2023 MCH (RBC) [Entitic mass] 26.3 pg 24.7-34.3 [facility] MCHC Auto (RBC) [Mass/Vol]Or dered By: Emelyn Velasquez on 10-11-2023 MCHC (RBC) [Mass/Vol] 32.7 g/dL 32.0-35.0 [facility] MCV Auto (RBC) [Entitic vol] Ordered By: Emelyn Velasquez on 10-11-2023 MCV (RBC) [Entitic vol] 80.5 fL 80-100 [facility] Monocytes Auto (Bld) [#/Vol] Ordered By: Emelyn Velasquez on 10-11-2023 Monocytes (Bld) [#/Vol] 0.6 10*3/uL 0.0-0.8 [facility] Monocytes/100 WBC Auto (Bld) Ordered By: Emelyn Velasquez on 10-11-2023 Monocytes/100 WBC (Bld) 7.1 % . [facility] Neutrophils Auto (Bld) [#/Vo l]Ordered By: Emelyn Velasquez on 10-11-2023 Neutrophils (Bld) [#/Vol] 5.4 10*3/uL 1.8-7.7 [facility] Neutrophils/100 WBC Auto (Bl d)Ordered By: Emelyn Velasquez on 10-11-2023 Neutrophils/100 WBC (Bld) 67.0 % . [facility] No Panel InformationOrdered By: Emelyn Velasquez on 10-11-2023 Estimated GFR (CKD-EPI) > 60.0 mL/Min [facility] Creatinine Clearance (Chem N/A [facility] Nucleated erythrocytes [Pres ence] in Blood by Automated countOrdered By: Emelyn Velasquez on 10-11-2023 Nucleated RBC Auto Ql (Bld) 0.1 /100{WBC} 0-0.5 [facility] Platelet mean volume Auto (B ld) [Entitic vol]Ordered By: Emelyn Velasquez on 10-11-2023 Platelet mean volume (Bld) [Entitic vol] 9.5 fL 6.3-10.7 [facility] Platelets Auto (Bld) [#/Vol] Ordered By: Emelyn Velasquez on 10-11-2023 Platelets (Bld) [#/Vol] 246 10*3/uL 150-450 [facility] Potassium [Moles/volume] in Serum or PlasmaOrdered By: Emelyn Velasquez on 10-11-2023 Potassium [Moles/Vol] 4.1 mmol/L 3.5-5.1 [facility] Protein [Mass/volume] in Ser um or PlasmaOrdered By: Emelyn Velasquez on 10-11-2023 Protein [Mass/Vol] 6.8 g/dL 6.4-8.9 [facility] RBC Auto (Bld) [#/Vol]Ordere d By: Emelyn Velasquez on 10-11-2023 RBC (Bld) [#/Vol] 5.46 10*6/uL 3.60-5.00 [facility] Serum or plasma albumin/glob ulin mass ratioOrdered By: Emelyn Velasquez on 10-11-2023 Albumin/Globulin [Mass ratio] 1.7 {ratio} [facility] Serum or plasma anion gap de terminationOrdered By: Emelyn Velasquez on 10-11-2023 Anion gap [Moles/Vol] 9.5 mmol/L 6.0-15.0 [facility] Serum or plasma high density lipoprotein (HDL) cholesterol measurementOrdered By: Emelyn Velasquez on 10-11-2023 Cholesterol in HDL [Mass/Vol] 31 mg/dL 23-92 [facility] Comment on above: HDL CHOL ATP-III CLA SSIFICATION Cardiovascular RiskHDL > or equal to 60 mg/dL LOWHDL < 40 mg/dL HIGH Serum or plasma total choles terol/high density lipoprotein (HDL) cholesterol mass ratOrdered By: Emelyn Velasquez on 10-11-2023 Cholesterol.total/Choles terol in HDL [Mass ratio] 4.5 {ratio} <5.0 [facility] Sodium [Moles/volume] in Ser um or PlasmaOrdered By: Emelyn Velasquez on 10-11-2023 Sodium [Moles/Vol] 140 mmol/L 136-145 [facility] Thyroid Stim Hormone w/Rflxo n 10-11-2023 Thyroid Stim Hormone w/Rflx 4.96 u[iU]/mL Normal 0.45-5.33 [facility] Comment on above: Order Comment: Reaso n for Exam Diabetes Result Comment: PERF ORMED BY: [place] [address] PATHOLOGIST FINAL APPLICATION REVIEWER MARTIR SEALS M.D. Performed By: #### C USUP, LIPID, CBC, CMP, [id number], TSH3 wRFLX #### [facility] [address] [place] [address] Thyrotropin [Units/volume] i n Serum or PlasmaOrdered By: Emelyn Velasquez on 10-11-2023 TSH Qn 4.96 m[IU]/L 0.45-5.33 [facility] Triglyceride [Mass/volume] i n Serum or PlasmaOrdered By: Emelyn Velasquez on 10-11-2023 Triglyceride [Mass/Vol] 161 mg/dL 0-149 [facility] Comment on above: TRIG ATP III CLASSIF ICATIONTRIG less than 150 mg/dL NormalTRIG 150-199 mg/dL Borderline highTRIG 200-500 mg/dL High TRIG greater than 500 mg/dL Very highStandard traceable to the Center for Disease Conrtrol and Prevention (CDC) test method. Urea nitrogen [Mass/volume] in Serum or PlasmaOrdered By: Emelyn Velasquez on 10-11-2023 Urea nitrogen [Mass/Vol] 9 mg/dL 05-24 [facility] WBC Auto (Bld) [#/Vol]Ordere d By: Emelyn Velasquez on 10-11-2023 WBC (Bld) [#/Vol] 8.1 10*3/uL 3.8-11.6 [facility] Alanine aminotransferase [En zymatic activity/volume] in Serum or PlasmaOrdered By: Emelyn Velasquez on 06-21-2023 ALT [Catalytic activity/Vol] 14 U/L 7 [facility] Albumin [Mass/volume] in Ser um or Plasma by Bromocresol green (BCG) dye binding methoOrdered By: Emelyn Villanuevac on 06-21-2023 Albumin BCG dye [Mass/Vol] 4.0 g/dL 3.5-5.7 [facility] Alkaline phosphatase [Enzyma tic activity/volume] in Serum or PlasmaOrdered By: Emelyn Spasic on 06-21-2023 ALP [Catalytic activity/Vol] 85 U/L 34-104 [facility] Aspartate aminotransferase [ Enzymatic activity/volume] in Serum or PlasmaOrdered By: Emelyn Spasic on 06-21-2023 AST [Catalytic activity/Vol] 13 U/L 13-39 [facility] Basophils Auto (Bld) [#/Vol] Ordered By: Emelyn Spasic on 06-21-2023 Basophils (Bld) [#/Vol] 0.1 10*3/uL 0.0-0.2 [facility] Basophils/100 WBC Auto (Bld) Ordered By: Emelyn Spasic on 06-21-2023 Basophils/100 WBC (Bld) 0.9 % . [facility] Bilirubin.total [Mass/volume ] in Serum or PlasmaOrdered By: Emelyn Spasic on 06-21-2023 Bilirubin [Mass/Vol] 0.4 mg/dL 0.3-1.0 [facility] Calcium [Mass/volume] in Ser um or PlasmaOrdered By: Emelyn Spasic on 06-21-2023 Calcium [Mass/Vol] 8.6 mg/dL 8.6-10.3 [facility] Carbon dioxide, total [Moles /volume] in Serum or PlasmaOrdered By: Emelyn Spasic on 06-21-2023 CO2 [Moles/Vol] 27.0 mmol/L 21.0-31.0 [facility] Chloride [Moles/volume] in S [place] or PlasmaOrdered By: Emelyn Spasic on 06-21-2023 Chloride [Moles/Vol] 104 mmol/L 98-107 [facility] Cholesterol [Mass/volume] in Serum or PlasmaOrdered By: Emelyn Spasic on 06-21-2023 Cholesterol [Mass/Vol] 149 mg/dL 140-200 [facility] Comment on above: Chol less than 200 m g/dl low riskChol 201-239 mg/dl borderline riskChol 240 mg/dl and greater high risk Cholesterol in LDL Calc [Mas s/Vol]Ordered By: Emelyn Velasquez on 06-21-2023 Cholesterol in LDL [Mass/Vol] 74 mg/dL 0-100 [facility] Comment on above: LDL ATP III CLASSIFI CATIONLDL less than 100 mg/dL OptimalLDL 100-129 mg/dL Near or above optimalLDL 130-159 mg/dL Borderline highLDL 160-189 mg/dL HighLDL greater than 189 mg/dL Very high Cholesterol in VLDL Calc [Ma ss/Vol]Ordered By: Emelyn Velasquez on 06-21-2023 Cholesterol in VLDL [Mass/Vol] 46 mg/dL [facility] Complete Blood Count Auto Di ffon 06-21-2023 Basophils (Bld) [#/Vol] 0.1 10*3/uL Normal 0.0-0.2 [facility] Comment on above: Order Comment: Reaso n for Exam Diabetes Result Comment: PERF ORMED BY: [place] [address] PATHOLOGIST FINAL APPLICATION REVIEWER MARTIR SEALS M.D. Performed By: #### T SH3 wRFLX, LIPID, CMP, CBC #### [facility] [address] [place] [id number] [place] Basophils/100 WBC (Bld) 0.9 % Normal . [facility] Comment on above: Order Comment: Reaso n for Exam Diabetes Performed By: #### T SH3 wRFLX, LIPID, CMP, CBC #### [facility] [address] [place] [address] [place] Eosinophils (Bld) [#/Vol] 0.2 10*3/uL Normal 0.0-0.45 [facility] Comment on above: Order Comment: Reaso n for Exam Diabetes Performed By: #### T SH3 wRFLX, LIPID, CMP, CBC #### [facility] [address] [place] [id number] [place] Eosinophils/100 WBC (Bld) 2.8 % Normal . [facility] Comment on above: Order Comment: Reaso n for Exam Diabetes Performed By: #### T SH3 wRFLX, LIPID, CMP, CBC #### [address] Erythrocyte distribution width (RBC) [Ratio] 14.6 % Normal 11.9-15.3 [facility] Comment on above: Order Comment: Reaso n for Exam Diabetes Performed By: #### T SH3 wRFLX, LIPID, CMP, CBC #### [address] Hematocrit (Bld) [Volume fraction] 41.7 % Normal 34.0-46.4 [facility] Comment on above: Order Comment: Reaso n for Exam Diabetes Performed By: #### T SH3 wRFLX, LIPID, CMP, CBC #### [address] Hemoglobin (Bld) [Mass/Vol] 13.7 g/dL Normal 11.8-15.4 [facility] Comment on above: Order Comment: Reaso n for Exam Diabetes Performed By: #### T SH3 wRFLX, LIPID, CMP, CBC #### [address] Lymphocytes (Bld) [#/Vol] 2.2 10*3/uL Normal 1.00-4.8 [facility] Comment on above: Order Comment: Reaso n for Exam Diabetes Performed By: #### T SH3 wRFLX, LIPID, CMP, CBC #### [place] [address] [place] Lymphocytes/100 WBC (Bld) 24.7 % Normal . [facility] Comment on above: Order Comment: Reaso n for Exam Diabetes Performed By: #### T SH3 wRFLX, LIPID, CMP, CBC #### [place] [id number] [facility] MCH (RBC) [Entitic mass] 27.0 pg Normal 24.7-34.3 [facility] Comment on above: Order Comment: Reaso n for Exam Diabetes Performed By: #### T SH3 wRFLX, LIPID, CMP, CBC #### [facility] [address] MCV (RBC) [Entitic vol] 81.9 fL Normal 80-100 [facility] Comment on above: Order Comment: Reaso n for Exam Diabetes Performed By: #### T SH3 wRFLX, LIPID, CMP, CBC #### [facility] [address] [place] [address] Mean Corpuscular HGB Conc 32.9 g/dL Normal 32.0-35.0 [facility] Comment on above: Order Comment: Reaso n for Exam Diabetes Performed By: #### T SH3 wRFLX, LIPID, CMP, CBC #### [address] Monocytes (Bld) [#/Vol] 0.5 10*3/uL Normal 0.0-0.8 [facility] Comment on above: Order Comment: Reaso n for Exam Diabetes Performed By: #### T SH3 wRFLX, LIPID, CMP, CBC #### [place] [address] [place] Monocytes/100 WBC (Bld) 5.9 % Normal . [facility] Comment on above: Order Comment: Reaso n for Exam Diabetes Performed By: #### T SH3 wRFLX, LIPID, CMP, CBC #### [place] [address] [place] Neutrophils (Bld) [#/Vol] 5.7 10*3/uL Normal 1.8-7.7 [facility] Comment on above: Order Comment: Reaso n for Exam Diabetes Performed By: #### T SH3 wRFLX, LIPID, CMP, CBC #### [facility] [address] [place] [address] [place] Neutrophils/100 WBC (Bld) 65.7 % Normal . [facility] Comment on above: Order Comment: Reaso n for Exam Diabetes Performed By: #### T SH3 wRFLX, LIPID, CMP, CBC #### [place] [address] [place] NRBC% 0.1 /100{WBC} Normal 0-0.5 [facility] Comment on above: Order Comment: Reaso n for Exam Diabetes Performed By: #### T SH3 wRFLX, LIPID, CMP, CBC #### [address] Platelet mean volume (Bld) [Entitic vol] 9.4 fL Normal 6.3-10.7 [facility] Comment on above: Order Comment: Reaso n for Exam Diabetes Performed By: #### T SH3 wRFLX, LIPID, CMP, CBC #### [address] Platelets (Bld) [#/Vol] 271 10*3/uL Normal 150-450 [facility] Comment on above: Order Comment: Reaso n for Exam Diabetes Performed By: #### T SH3 wRFLX, LIPID, CMP, CBC #### [address] RBC (Bld) [#/Vol] 5.09 10*6/uL High 3.60-5.00 [facility] Comment on above: Order Comment: Reaso n for Exam Diabetes Performed By: #### T SH3 wRFLX, LIPID, CMP, CBC #### [address] WBC (Bld) [#/Vol] 8.8 10*3/uL Normal 3.8-11.6 [facility] Comment on above: Order Comment: Reaso n for Exam Diabetes Performed By: #### T SH3 wRFLX, LIPID, CMP, CBC #### [address] Comprehensive Metabolic Pane cheryl 06-21-2023 Albumin [Mass/Vol] 4.0 g/dL Normal 3.5-5.7 [facility] Comment on above: Order Comment: Reaso n for Exam Diabetes Performed By: #### T SH3 wRFLX, LIPID, CMP, CBC #### [place] [address] [place] Albumin/Globulin [Mass ratio] 1.7 {ratio} Normal [facility] Comment on above: Order Comment: Reaso n for Exam Diabetes Performed By: #### T SH3 wRFLX, LIPID, CMP, CBC #### [facility] [address] ALP [Catalytic activity/Vol] 85 U/L Normal 34-104 [facility] Comment on above: Order Comment: Reaso n for Exam Diabetes Performed By: #### T SH3 wRFLX, LIPID, CMP, CBC #### [facility] [address] [place] [address] ALT [Catalytic activity/Vol] 14 U/L Normal 7-52 [facility] Comment on above: Order Comment: Reaso n for Exam Diabetes Performed By: #### T SH3 wRFLX, LIPID, CMP, CBC #### [address] Anion gap [Moles/Vol] 10.6 mmol/L Normal 6.0-15.0 [facility] Comment on above: Order Comment: Reaso n for Exam Diabetes Performed By: #### T SH3 wRFLX, LIPID, CMP, CBC #### [facility] [address] [place] [address] AST [Catalytic activity/Vol] 13 U/L Normal 13-39 [facility] Comment on above: Order Comment: Reaso n for Exam Diabetes Performed By: #### T SH3 wRFLX, LIPID, CMP, CBC #### [facility] [address] [place] [address] [place] Bilirubin [Mass/Vol] 0.4 mg/dL Normal 0.3-1.0 [facility] Comment on above: Order Comment: Reaso n for Exam Diabetes Performed By: #### T SH3 wRFLX, LIPID, CMP, CBC #### [facility] [address] [place] [address] [place] Calcium [Mass/Vol] 8.6 mg/dL Normal 8.6-10.3 [facility] Comment on above: Order Comment: Reaso n for Exam Diabetes Performed By: #### T SH3 wRFLX, LIPID, CMP, CBC #### [facility] [address] [place] [address] [place] Chloride [Moles/Vol] 104 mmol/L Normal 98-107 [facility] Comment on above: Order Comment: Reaso n for Exam Diabetes Performed By: #### T SH3 wRFLX, LIPID, CMP, CBC #### [facility] [address] [place] [address] [place] CO2 [Moles/Vol] 27.0 mmol/L Normal 21.0-31.0 [facility] Comment on above: Order Comment: Reaso n for Exam Diabetes Performed By: #### T SH3 wRFLX, LIPID, CMP, CBC #### [facility] [address] Creatinine [Mass/Vol] 0.75 mg/dL Normal 0.60-1.20 [facility] Comment on above: Order Comment: Reaso n for Exam Diabetes Performed By: #### T SH3 wRFLX, LIPID, CMP, CBC #### [place] [address] [place] GFR/1.73 sq M.predicted MDRD (S/P/Bld) [Vol rate/Area] mL/min/{1.73_m2} Normal [facility] Comment on above: Order Comment: Reaso n for Exam Diabetes Performed By: #### T SH3 wRFLX, LIPID, CMP, CBC #### [facility] [address] [place] [address] [place] Globulin (S) [Mass/Vol] 2.4 g/dL Normal T [facility] Comment on above: Order Comment: Reaso n for Exam Diabetes Performed By: #### T SH3 wRFLX, LIPID, CMP, CBC #### [facility] [address] [place] [address] [place] Glucose [Mass/Vol] 132 mg/dL High 70-100 [facility] Comment on above: Order Comment: Reaso n for Exam Diabetes Result Comment: Ulysses Glucose Reference Range is dependent on time and content of last meal. Glucose of more than 200 mg/dL in a nonstressed, ambulatory subject supports the diagnosis of Diabetes Mellitus. ADA recommended reference range Performed By: #### T SH3 wRFLX, LIPID, CMP, CBC #### [facility] [address] [place] [address] [place] Potassium [Moles/Vol] 3.6 mmol/L Normal 3.5-5.1 [facility] Comment on above: Order Comment: Reaso n for Exam Diabetes Performed By: #### T SH3 wRFLX, LIPID, CMP, CBC #### [facility] [address] Protein [Mass/Vol] 6.4 g/dL Normal 6.4-8.9 [facility] Comment on above: Order Comment: Reaso n for Exam Diabetes Performed By: #### T SH3 wRFLX, LIPID, CMP, CBC #### [facility] [address] [place] [address] [place] Sodium [Moles/Vol] 138 mmol/L Normal 136-145 [facility] Comment on above: Order Comment: Reaso n for Exam Diabetes Performed By: #### T SH3 wRFLX, LIPID, CMP, CBC #### [facility] [address] [place] [address] [place] Urea nitrogen [Mass/Vol] 8 mg/dL Normal 7-25 [facility] Comment on above: Order Comment: Reaso n for Exam Diabetes Performed By: #### T SH3 wRFLX, LIPID, CMP, CBC #### [facility] [address] [place] [address] [place] Creatinine [Mass/volume] in Serum or PlasmaOrdered By: Emelyn Velasquez on 06-21-2023 Creatinine [Mass/Vol] 0.75 mg/dL 0.60-1.20 [facility] Eosinophils Auto (Bld) [#/Vo l]Ordered By: Emelyn Velasquez on 06-21-2023 Eosinophils (Bld) [#/Vol] 0.2 10*3/uL 0.0-0.45 [facility] Eosinophils/100 WBC Auto (Bl d)Ordered By: Emelyn Velasquez on 06-21-2023 Eosinophils/100 WBC (Bld) 2.8 % . [facility] Erythrocyte distribution wid th Auto (RBC) [Ratio]Ordered By: Emelyn Velasquez on 06-21-2023 Erythrocyte distribution width (RBC) [Ratio] 14.6 % 11.9-15.3 [facility] Globulin Calc (S) [Mass/Vol] Ordered By: Emelyn Velasquez on 06-21-2023 Globulin (S) [Mass/Vol] 2.4 g/dL [facility] Glucose [Mass/volume] in Ser um or PlasmaOrdered By: Emelyn Velasquez on 06-21-2023 Glucose [Mass/Vol] 132 mg/dL 70-100 [facility] Comment on above: ADA recommended refe rence rangeRandom Glucose Reference Range is dependent on time and content of last meal. Glucose of more than 200 mg/dL in a nonstressed, ambulatory subject supports the diagnosis of Diabetes Mellitus. Hematocrit Auto (Bld) [Volum e fraction]Ordered By: Emelyn Velasquez on 06-21-2023 Hematocrit (Bld) [Volume fraction] 41.7 % 34.0-46.4 [facility] Hemoglobin [Mass/volume] in BloodOrdered By: Emelyn Velasquez on 06-21-2023 Hemoglobin (Bld) [Mass/Vol] 13.7 g/dL 11.8-15.4 [facility] Leukocytes [#/volume] correc sharita for nucleated erythrocytes in Blood by Automated counOrdered By: Emelyn Velasquez on 06-21-2023 WBC corrected for nucl RBC Auto (Bld) [#/Vol] 8.8 10*3/uL 3.8-11.6 [facility] Lipid Panelon 06-21-2023 Cholesterol [Mass/Vol] 149 mg/dL Normal 140-200 [facility] Comment on above: Order Comment: Reaso n for Exam Diabetes Result Comment: Chol less than 200 mg/dl low risk Chol 201-239 mg/dl borderline risk Chol 240 mg/dl and greater high risk Performed By: #### T SH3 wRFLX, LIPID, CMP, CBC #### [address] Cholesterol in HDL [Mass/Vol] 28 mg/dL Normal 23-92 [facility] Comment on above: Order Comment: Reaso n for Exam Diabetes Result Comment: HDL CHOL ATP-III CLASSIFICATION Cardiovascular Risk HDL > or equal to 60 mg/dL LOW HDL < 40 mg/dL HIGH Performed By: #### T SH3 wRFLX, LIPID, CMP, CBC #### [facility] [address] Cholesterol.total/Choles terol in HDL [Mass ratio] 5.3 {ratio} Normal <5.0 [facility] Comment on above: Order Comment: Reaso n for Exam Diabetes Performed By: #### T SH3 wRFLX, LIPID, CMP, CBC #### [facility] [address] LDL Cholesterol,Calculated 74 mg/dL Normal 0-100 [facility] Comment on above: Order Comment: Reaso n for Exam Diabetes Result Comment: LDL ATP III CLASSIFICATION LDL less than 100 mg/dL Optimal LDL 100-129 mg/dL Near or above optimal LDL 130-159 mg/dL Borderline high LDL 160-189 mg/dL High LDL greater than 189 mg/dL Very high Performed By: #### T SH3 wRFLX, LIPID, CMP, CBC #### [facility] [address] Triglyceride w/Reflex 234 mg/dL High 0-149 [facility] Comment on above: Order Comment: Reaso n for Exam Diabetes Result Comment: TRIG ATP III CLASSIFICATION TRIG less than 150 mg/dL Normal TRIG 150-199 mg/dL Borderline high TRIG 200-500 mg/dL High TRIG greater than 500 mg/dL Very high Standard traceable to the Center for Disease Conrtrol and Prevention (CDC) test method. Performed By: #### T SH3 wRFLX, LIPID, CMP, CBC #### [facility] [address] VLDL CHOLESTEROL 46 mg/dL Normal [facility] Comment on above: Order Comment: Reaso n for Exam Diabetes Performed By: #### T SH3 wRFLX, LIPID, CMP, CBC #### [facility] [address] Lymphocytes Auto (Bld) [#/Vo l]Ordered By: Emelyn Velasquez on 06-21-2023 Lymphocytes (Bld) [#/Vol] 2.2 10*3/uL 1.00-4.8 [facility] Lymphocytes/100 WBC Auto (Bl d)Ordered By: Emelyn Velasquez on 06-21-2023 Lymphocytes/100 WBC (Bld) 24.7 % . [facility] MCH Auto (RBC) [Entitic mass ]Ordered By: Emelyn Velasquez on 06-21-2023 MCH (RBC) [Entitic mass] 27.0 pg 24.7-34.3 [facility] MCHC Auto (RBC) [Mass/Vol]Or dered By: Emelyn Velsaquez on 06-21-2023 MCHC (RBC) [Mass/Vol] 32.9 g/dL 32.0-35.0 [facility] MCV Auto (RBC) [Entitic vol] Ordered By: Emelyn Velasquez on 06-21-2023 MCV (RBC) [Entitic vol] 81.9 fL 80-100 [facility] Monocytes Auto (Bld) [#/Vol] Ordered By: Emelyn Velasquez on 06-21-2023 Monocytes (Bld) [#/Vol] 0.5 10*3/uL 0.0-0.8 [facility] Monocytes/100 WBC Auto (Bld) Ordered By: Emelyn Velasquez on 06-21-2023 Monocytes/100 WBC (Bld) 5.9 % . [facility] Neutrophils Auto (Bld) [#/Vo l]Ordered By: Emelyn Velasquez on 06-21-2023 Neutrophils (Bld) [#/Vol] 5.7 10*3/uL 1.8-7.7 [facility] Neutrophils/100 WBC Auto (Bl d)Ordered By: Emelyn Velasquez on 06-21-2023 Neutrophils/100 WBC (Bld) 65.7 % . [facility] No Panel InformationOrdered By: Emelyn Velasquez on 06-21-2023 Estimated GFR (CKD-EPI) > 60.0 mL/Min [facility] Creatinine Clearance (Chem N/A [facility] Nucleated erythrocytes [Pres ence] in Blood by Automated countOrdered By: Emelyn Velasquez on 06-21-2023 Nucleated RBC Auto Ql (Bld) 0.1 /100{WBC} 0-0.5 [facility] Platelet mean volume Auto (B ld) [Entitic vol]Ordered By: Emelyn Velasquez on 06-21-2023 Platelet mean volume (Bld) [Entitic vol] 9.4 fL 6.3-10.7 [facility] Platelets Auto (Bld) [#/Vol] Ordered By: Emelyn Velasquez on 06-21-2023 Platelets (Bld) [#/Vol] 271 10*3/uL 150-450 [facility] Potassium [Moles/volume] in Serum or PlasmaOrdered By: Emelyn Velasquez on 06-21-2023 Potassium [Moles/Vol] 3.6 mmol/L 3.5-5.1 [facility] Protein [Mass/volume] in Ser um or PlasmaOrdered By: Emelyn Velasquez on 06-21-2023 Protein [Mass/Vol] 6.4 g/dL 6.4-8.9 [facility] RBC Auto (Bld) [#/Vol]Ordere d By: Emelyn Velasquez on 06-21-2023 RBC (Bld) [#/Vol] 5.09 10*6/uL 3.60-5.00 [facility] Serum or plasma albumin/glob ulin mass ratioOrdered By: Emelyn Velasquez on 06-21-2023 Albumin/Globulin [Mass ratio] 1.7 {ratio} [facility] Serum or plasma anion gap de terminationOrdered By: Emelyn Velasquez on 06-21-2023 Anion gap [Moles/Vol] 10.6 mmol/L 6.0-15.0 [facility] Serum or plasma high density lipoprotein (HDL) cholesterol measurementOrdered By: Emelyn Velasquez on 06-21-2023 Cholesterol in HDL [Mass/Vol] 28 mg/dL 23-92 [facility] Comment on above: HDL CHOL ATP-III CLA SSIFICATION Cardiovascular RiskHDL > or equal to 60 mg/dL LOWHDL < 40 mg/dL HIGH Serum or plasma total choles terol/high density lipoprotein (HDL) cholesterol mass ratOrdered By: Emelyn Velasquez on 06-21-2023 Cholesterol.total/Choles terol in HDL [Mass ratio] 5.3 {ratio} <5.0 [facility] Sodium [Moles/volume] in Ser um or PlasmaOrdered By: Emelyn Velasquez on 06-21-2023 Sodium [Moles/Vol] 138 mmol/L 136-145 [facility] Thyroid Stim Hormone w/Rflxo n 06-21-2023 Thyroid Stim Hormone w/Rflx 4.19 u[iU]/mL Normal 0.45-5.33 [facility] Comment on above: Order Comment: Reaso n for Exam Diabetes Result Comment: PERF ORMED BY: [place] [address] PATHOLOGIST FINAL APPLICATION REVIEWER MARTIR SEALS M.D. Performed By: #### C USUP, LIPID, CBC, CMP, [id number], TSH3 wRFLX #### [address] Thyrotropin [Units/volume] i n Serum or PlasmaOrdered By: Emelyn Velasquez on 06-21-2023 TSH Qn 4.19 m[IU]/L 0.45-5.33 [facility] Triglyceride [Mass/volume] i n Serum or PlasmaOrdered By: Emelyn Velasquez on 06-21-2023 Triglyceride [Mass/Vol] 234 mg/dL 0-149 [facility] Comment on above: TRIG ATP III CLASSIF ICATIONTRIG less than 150 mg/dL NormalTRIG 150-199 mg/dL Borderline highTRIG 200-500 mg/dL High TRIG greater than 500 mg/dL Very highStandard traceable to the Center for Disease Conrtrol and Prevention (CDC) test method. Urea nitrogen [Mass/volume] in Serum or PlasmaOrdered By: Emelyn Velasquez on 06-21-2023 Urea nitrogen [Mass/Vol] 8 mg/dL 7-25 [facility] WBC Auto (Bld) [#/Vol]Ordere d By: Emelyn Velasquez on 06-21-2023 WBC (Bld) [#/Vol] 8.8 10*3/uL 3.8-11.6 [facility] BioFire Not Detectedon 04-04 BioFire Not Detected Not detected Normal Not Detecte T [facility] Comment on above: Result Comment: This is a duplicate RP2.1 COVID (PCR) result to be used for statistical tracking purpose only. PERFORMED BY: [facility] [address] [place] [address] PATHOLOGIST FINAL APPLICATION REVIEWER MARTIR SEALS M.D. Performed By: #### C USUP, LIPID, CBC, CMP, [id number], TSH3 wRFLX #### [facility] [address] COVID-19 Detected/Not Detect edOrdered By: Emelyn Velasquez on 04-04-2023 SARS-CoV-2 (COVID-19) RNA MIGUEL+non-probe Ql (Nph) Not detected Not Detecte [facility] Comment on above: This is a duplicate RP2.1 COVID (PCR) result to be used for statistical tracking purpose only. Respiratory (Upper) Panel, P CRon 04-04-2023 Respiratory (Upper) Panel, PCR Reason for Exam Acute cough Adenovirus Not detected Bordetella parapertussis Not detected Chlamydia pneumoniae Not detected Coronavirus 229E Not detected Coronavirus HKU1 Not detected Coronavirus NL63 Not detected Coronavirus OC43 Not detected Influenza A Not detected Influenza B Not detected Human Metapneumovirus Not detected Mycoplasma pneumoniae Not detected Parainfluenza Virus 1 Not detected Parainfluenza Virus 2 Not detected Parainfluenza Virus 3 Not detected Parainfluenza Virus 4 Not detected Bordetella pertussis-ptxP Not detected Human Rhino/Enterovirus Not detected Resp. Syncytial Virus Not detected COVID-19 Detected/Not Detected Not detected Blank Space FLUA TEST INCLUDES Influenza A tests for the following clinically FLUA TEST INCLUDES significant subtypes: FLUA TEST INCLUDES - Influenza A FLUA TEST INCLUDES - Influenza A H1 FLUA TEST INCLUDES - Influenza A H1 2009 FLUA TEST INCLUDES - Influenza A H3 Blank Space PERFORMED BY: [facility] [address] [place] [address] PATHOLOGIST FINAL APPLICATION REVIEWER MARTIR SEALS M.D. Normal [facility] Comment on above: Performed By: #### C USUP, LIPID, CBC, CMP, [id number], TSH3 wRFLX #### [facility] [address] Respiratory pathogens DNA an d RNA panel - Nasopharynx by MIGUEL with non-probe detectionOrdered By: Emelyn Velasquez on 04-04-2023 Respiratory pathogens DNA and RNA panel MIGUEL+non-probe (Nph) [facility] Alanine aminotransferase [En zymatic activity/volume] in Serum or PlasmaOrdered By: Emelyn Velasquez on 03-03-2023 ALT [Catalytic activity/Vol] 15 U/L 7-52 [facility] Albumin [Mass/volume] in Ser um or Plasma by Bromocresol green (BCG) dye binding methoOrdered By: Emelyn Velasquez on 03-03-2023 Albumin BCG dye [Mass/Vol] 4.1 g/dL 3.5-5.7 [facility] Alkaline phosphatase [Enzyma tic activity/volume] in Serum or PlasmaOrdered By: Emelyn Velasquez on 03-03-2023 ALP [Catalytic activity/Vol] 92 U/L 34-104 [facility] Aspartate aminotransferase [ Enzymatic activity/volume] in Serum or PlasmaOrdered By: Emelyn Velasquez on 03-03-2023 AST [Catalytic activity/Vol] 14 U/L 13-39 [facility] Bacteria identified Aer cx N om (Unsp spec)Ordered By: Emelyn Velasquez on 03-03-2023 Superficial Wound Culture Staphylococcus aureus [facility] Superficial Wound Culture Cordelia albicans [facility] Basophils Auto (Bld) [#/Vol] Ordered By: Emelyn Velasquez on 03-03-2023 Basophils (Bld) [#/Vol] 0.1 10*3/uL 0.0-0.2 [facility] Basophils/100 WBC Auto (Bld) Ordered By: Emelyn Velasquez on 03-03-2023 Basophils/100 WBC (Bld) 1.2 % . [facility] Bilirubin.total [Mass/volume ] in Serum or PlasmaOrdered By: Emelyn Velasquez on 03-03-2023 Bilirubin [Mass/Vol] 0.3 mg/dL 0.3-1.0 [facility] Calcium [Mass/volume] in Ser um or PlasmaOrdered By: Emelyn Velasquez on 03-03-2023 Calcium [Mass/Vol] 8.6 mg/dL 8.6-10.3 [facility] Carbon dioxide, total [Moles /volume] in Serum or PlasmaOrdered By: Emelyn Velasquez on 03-03-2023 CO2 [Moles/Vol] 27.0 mmol/L 21.0-31.0 [facility] Chloride [Moles/volume] in S [place] or PlasmaOrdered By: Emelyn Velasquez on 03-03-2023 Chloride [Moles/Vol] 104 mmol/L 98-107 [facility] Cholesterol [Mass/volume] in Serum or PlasmaOrdered By: Emelyn Velasquez on 03-03-2023 Cholesterol [Mass/Vol] 179 mg/dL 140-200 [facility] Comment on above: Chol less than 200 m g/dl low riskChol 201-239 mg/dl borderline riskChol 240 mg/dl and greater high risk Cholesterol in LDL Calc [Mas s/Vol]Ordered By: Emelyn Velasquez on 03-03-2023 Cholesterol in LDL [Mass/Vol] 92 mg/dL 0-100 [facility] Comment on above: LDL ATP III CLASSIFI CATIONLDL less than 100 mg/dL OptimalLDL 100-129 mg/dL Near or above optimalLDL 130-159 mg/dL Borderline highLDL 160-189 mg/dL HighLDL greater than 189 mg/dL Very high Cholesterol in VLDL Calc [Ma ss/Vol]Ordered By: Emelyn Velasquez on 03-03-2023 Cholesterol in VLDL [Mass/Vol] 56 mg/dL [facility] Complete Blood Count Auto Di ffon 03-03-2023 Basophils (Bld) [#/Vol] 0.1 10*3/uL Normal 0.0-0.2 [facility] Comment on above: Order Comment: Reaso n for Exam Diabetes Result Comment: PERF ORMED BY: [place] [address] PATHOLOGIST FINAL APPLICATION REVIEWER MARTIR SEALS M.D. Performed By: #### C USUP, LIPID, CBC, CMP, [id number], TSH3 wRFLX #### [address] Basophils/100 WBC (Bld) 1.2 % Normal . [facility] Comment on above: Order Comment: Reaso n for Exam Diabetes Performed By: #### C USUP, LIPID, CBC, CMP, [id number], TSH3 wRFLX #### [address] Eosinophils (Bld) [#/Vol] 0.2 10*3/uL Normal 0.0-0.45 [facility] Comment on above: Order Comment: Reaso n for Exam Diabetes Performed By: #### C USUP, LIPID, CBC, CMP, [id number], TSH3 wRFLX #### [address] Eosinophils/100 WBC (Bld) 3.3 % Normal . [facility] Comment on above: Order Comment: Reaso n for Exam Diabetes Performed By: #### C USUP, LIPID, CBC, CMP, [id number], TSH3 wRFLX #### [address] Erythrocyte distribution width (RBC) [Ratio] 14.8 % Normal 11.9-15.3 [facility] Comment on above: Order Comment: Reaso n for Exam Diabetes Performed By: #### C USUP, LIPID, CBC, CMP, [id number], TSH3 wRFLX #### [address] Hematocrit (Bld) [Volume fraction] 47.5 % High 34.0-46.4 [facility] Comment on above: Order Comment: Reaso n for Exam Diabetes Performed By: #### C USUP, LIPID, CBC, CMP, [id number], TSH3 wRFLX #### [address] Hemoglobin (Bld) [Mass/Vol] 15.6 g/dL High 11.8-15.4 [facility] Comment on above: Order Comment: Reaso n for Exam Diabetes Performed By: #### C USUP, LIPID, CBC, CMP, [id number], TSH3 wRFLX #### [address] Lymphocytes (Bld) [#/Vol] 2.2 10*3/uL Normal 1.00-4.8 [facility] Comment on above: Order Comment: Reaso n for Exam Diabetes Performed By: #### C USUP, LIPID, CBC, CMP, [id number], TSH3 wRFLX #### [address] Lymphocytes/100 WBC (Bld) 29.0 % Normal . [facility] Comment on above: Order Comment: Reaso n for Exam Diabetes Performed By: #### C USUP, LIPID, CBC, CMP, [id number], TSH3 wRFLX #### [address] MCH (RBC) [Entitic mass] 26.4 pg Normal 24.7-34.3 [facility] Comment on above: Order Comment: Reaso n for Exam Diabetes Performed By: #### C USUP, LIPID, CBC, CMP, [id number], TSH3 wRFLX #### [address] MCV (RBC) [Entitic vol] 80.3 fL Normal 80-100 [facility] Comment on above: Order Comment: Reaso n for Exam Diabetes Performed By: #### C USUP, LIPID, CBC, CMP, [id number], TSH3 wRFLX #### [address] Mean Corpuscular HGB Conc 32.8 g/dL Normal 32.0-35.0 [facility] Comment on above: Order Comment: Reaso n for Exam Diabetes Performed By: #### C USUP, LIPID, CBC, CMP, [id number], TSH3 wRFLX #### [facility] [address] [place] [address] [place] Monocytes (Bld) [#/Vol] 0.6 10*3/uL Normal 0.0-0.8 [facility] Comment on above: Order Comment: Reaso n for Exam Diabetes Performed By: #### C USUP, LIPID, CBC, CMP, [id number], TSH3 wRFLX #### [place] [address] [place] Monocytes/100 WBC (Bld) 7.7 % Normal . T rachelle [facility] Comment on above: Order Comment: Reaso n for Exam Diabetes Performed By: #### C USUP, LIPID, CBC, CMP, [id number], TSH3 wRFLX #### [place] [address] [place] Neutrophils (Bld) [#/Vol] 4.4 10*3/uL Normal 1.8-7.7 [facility] Comment on above: Order Comment: Reaso n for Exam Diabetes Performed By: #### C USUP, LIPID, CBC, CMP, [id number], TSH3 wRFLX #### [address] Neutrophils/100 WBC (Bld) 58.8 % Normal . [facility] Comment on above: Order Comment: Reaso n for Exam Diabetes Performed By: #### C USUP, LIPID, CBC, CMP, [id number], TSH3 wRFLX #### [place] [address] [place] NRBC% 0.1 /100{WBC} Normal 0-0.5 [facility] Comment on above: Order Comment: Reaso n for Exam Diabetes Performed By: #### C USUP, LIPID, CBC, CMP, [id number], TSH3 wRFLX #### [place] [address] [place] Platelet mean volume (Bld) [Entitic vol] 9.1 fL Normal 6.3-10.7 [facility] Comment on above: Order Comment: Reaso n for Exam Diabetes Performed By: #### C USUP, LIPID, CBC, CMP, [id number], TSH3 wRFLX #### [facility] [address] Platelets (Bld) [#/Vol] 303 10*3/uL Normal 150-450 [facility] Comment on above: Order Comment: Reaso n for Exam Diabetes Performed By: #### C USUP, LIPID, CBC, CMP, [id number], TSH3 wRFLX #### [facility] [address] [place] [address] RBC (Bld) [#/Vol] 5.92 10*6/uL High 3.60-5.00 [facility] Comment on above: Order Comment: Reaso n for Exam Diabetes Performed By: #### C USUP, LIPID, CBC, CMP, [id number], TSH3 wRFLX #### [facility] [address] [place] [address] WBC (Bld) [#/Vol] 7.5 10*3/uL Normal 3.8-11.6 [facility] Comment on above: Order Comment: Reaso n for Exam Diabetes Performed By: #### C USUP, LIPID, CBC, CMP, [id number], TSH3 wRFLX #### [address] Comprehensive Metabolic Pane cheryl 03-03-2023 Albumin [Mass/Vol] 4.1 g/dL Normal 3.5-5.7 [facility] Comment on above: Order Comment: Reaso n for Exam Diabetes Reason for Exam Diabetes;Essential hypertension Reason for Exam Vitamin D deficiency Performed By: #### C USUP, LIPID, CBC, CMP, [id number], TSH3 wRFLX #### [place] [id number] [facility] Albumin/Globulin [Mass ratio] 1.6 {ratio} Normal [facility] Comment on above: Order Comment: Reaso n for Exam Diabetes Reason for Exam Diabetes;Essential hypertension Reason for Exam Vitamin D deficiency Performed By: #### C USUP, LIPID, CBC, CMP, [id number], TSH3 wRFLX #### [facility] [address] [place] [id number] [facility] ALP [Catalytic activity/Vol] 92 U/L Normal 34-104 [facility] Comment on above: Order Comment: Reaso n for Exam Diabetes Reason for Exam Diabetes;Essential hypertension Reason for Exam Vitamin D deficiency Performed By: #### C USUP, LIPID, CBC, CMP, [id number], TSH3 wRFLX #### [facility] [address] [place], [place] [id number] [facility] ALT [Catalytic activity/Vol] 15 U/L Normal 7-52 [facility] Comment on above: Order Comment: Reaso n for Exam Diabetes Reason for Exam Diabetes;Essential hypertension Reason for Exam Vitamin D deficiency Performed By: #### C USUP, LIPID, CBC, CMP, [id number], TSH3 wRFLX #### [facility] [address] [place] [address] Anion gap [Moles/Vol] 10.0 mmol/L Normal 6.0-15.0 [facility] Comment on above: Order Comment: Reaso n for Exam Diabetes Reason for Exam Diabetes;Essential hypertension Reason for Exam Vitamin D deficiency Performed By: #### C USUP, LIPID, CBC, CMP, [id number], TSH3 wRFLX #### [facility] [address] [place], [place] [id number] [place] AST [Catalytic activity/Vol] 14 U/L Normal 13-39 [facility] Comment on above: Order Comment: Reaso n for Exam Diabetes Reason for Exam Diabetes;Essential hypertension Reason for Exam Vitamin D deficiency Performed By: #### C USUP, LIPID, CBC, CMP, [id number], TSH3 wRFLX #### [facility] [address] [place], [place] [id number] [place] Bilirubin [Mass/Vol] 0.3 mg/dL Normal 0.3-1.0 [facility] Comment on above: Order Comment: Reaso n for Exam Diabetes Reason for Exam Diabetes;Essential hypertension Reason for Exam Vitamin D deficiency Performed By: #### C USUP, LIPID, CBC, CMP, [id number], TSH3 wRFLX #### [facility] [address] Calcium [Mass/Vol] 8.6 mg/dL Normal 8.6-10.3 [facility] Comment on above: Order Comment: Reaso n for Exam Diabetes Reason for Exam Diabetes;Essential hypertension Reason for Exam Vitamin D deficiency Performed By: #### C USUP, LIPID, CBC, CMP, [id number], TSH3 wRFLX #### [facility] [address] [place] [address] Chloride [Moles/Vol] 104 mmol/L Normal 98-107 [facility] Comment on above: Order Comment: Reaso n for Exam Diabetes Reason for Exam Diabetes;Essential hypertension Reason for Exam Vitamin D deficiency Performed By: #### C USUP, LIPID, CBC, CMP, [id number], TSH3 wRFLX #### [address] CO2 [Moles/Vol] 27.0 mmol/L Normal 21.0-31.0 [facility] Comment on above: Order Comment: Reaso n for Exam Diabetes Reason for Exam Diabetes;Essential hypertension Reason for Exam Vitamin D deficiency Performed By: #### C USUP, LIPID, CBC, CMP, [id number], TSH3 wRFLX #### [address] Creatinine [Mass/Vol] 0.75 mg/dL Normal 0.60-1.20 [facility] Comment on above: Order Comment: Reaso n for Exam Diabetes Reason for Exam Diabetes;Essential hypertension Reason for Exam Vitamin D deficiency Performed By: #### C USUP, LIPID, CBC, CMP, [id number], TSH3 wRFLX #### [facility] [address] [place] [address] [place] GFR/1.73 sq M.predicted MDRD (S/P/Bld) [Vol rate/Area] mL/min/{1.73_m2} Normal [facility] Comment on above: Order Comment: Reaso n for Exam Diabetes Reason for Exam Diabetes;Essential hypertension Reason for Exam Vitamin D deficiency Performed By: #### C USUP, LIPID, CBC, CMP, [id number], TSH3 wRFLX #### [facility] [address] [place] [address] [facility] Globulin (S) [Mass/Vol] 2.6 g/dL Normal T [facility] Comment on above: Order Comment: Reaso n for Exam Diabetes Reason for Exam Diabetes;Essential hypertension Reason for Exam Vitamin D deficiency Performed By: #### C USUP, LIPID, CBC, CMP, [id number], TSH3 wRFLX #### [facility] [address] [place] [address] [facility] Glucose [Mass/Vol] 106 mg/dL High 70-100 [facility] Comment on above: Order Comment: Reaso n for Exam Diabetes Reason for Exam Diabetes;Essential hypertension Reason for Exam Vitamin D deficiency Result Comment: [facility] Glucose Reference Range is dependent on time and content of last meal. Glucose of more than 200 mg/dL in a nonstressed, ambulatory subject supports the diagnosis of Diabetes Mellitus. ADA recommended reference range Performed By: #### C USUP, LIPID, CBC, CMP, [id number], TSH3 wRFLX #### [facility] [address] [place] [id number] [facility] Potassium [Moles/Vol] 4.0 mmol/L Normal 3.5-5.1 [facility] Comment on above: Order Comment: Reaso n for Exam Diabetes Reason for Exam Diabetes;Essential hypertension Reason for Exam Vitamin D deficiency Performed By: #### C USUP, LIPID, CBC, CMP, [id number], TSH3 wRFLX #### [facility] [address] [place] [address] [facility] Protein [Mass/Vol] 6.7 g/dL Normal 6.4-8.9 [facility] Comment on above: Order Comment: Reaso n for Exam Diabetes Reason for Exam Diabetes;Essential hypertension Reason for Exam Vitamin D deficiency Performed By: #### C USUP, LIPID, CBC, CMP, [id number], TSH3 wRFLX #### [facility] [address] [place] [address] [facility] Sodium [Moles/Vol] 137 mmol/L Normal 136-145 [facility] Comment on above: Order Comment: Reaso n for Exam Diabetes Reason for Exam Diabetes;Essential hypertension Reason for Exam Vitamin D deficiency Performed By: #### C USUP, LIPID, CBC, CMP, [id number], TSH3 wRFLX #### [facility] [address] [place] [address] [place] Urea nitrogen [Mass/Vol] 9 mg/dL Normal 7-25 [facility] Comment on above: Order Comment: Reaso n for Exam Diabetes Reason for Exam Diabetes;Essential hypertension Reason for Exam Vitamin D deficiency Performed By: #### C USUP, LIPID, CBC, CMP, [id number], TSH3 wRFLX #### [facility] [address] [place] [address] [place] Creatinine [Mass/volume] in Serum or PlasmaOrdered By: Emelyn Velasquez on 03-03-2023 Creatinine [Mass/Vol] 0.75 mg/dL 0.60-1.20 [facility] Eosinophils Auto (Bld) [#/Vo l]Ordered By: Emelyn Velasquez on 03-03-2023 Eosinophils (Bld) [#/Vol] 0.2 10*3/uL 0.0-0.45 [facility] Eosinophils/100 WBC Auto (Bl d)Ordered By: Emelyn Velasquez on 03-03-2023 Eosinophils/100 WBC (Bld) 3.3 % . [facility] Erythrocyte distribution wid th Auto (RBC) [Ratio]Ordered By: Emelyn Velasquez on 03-03-2023 Erythrocyte distribution width (RBC) [Ratio] 14.8 % 11.9-15.3 [facility] Globulin Calc (S) [Mass/Vol] Ordered By: Emelyn Velasquez on 03-03-2023 Globulin (S) [Mass/Vol] 2.6 g/dL [facility] Glucose [Mass/volume] in Ser um or PlasmaOrdered By: Emelyn Velasquez on 03-03-2023 Glucose [Mass/Vol] 106 mg/dL 70-100 [facility] Comment on above: ADA recommended refe rence rangeRandom Glucose Reference Range is dependent on time and content of last meal. Glucose of more than 200 mg/dL in a nonstressed, ambulatory subject supports the diagnosis of Diabetes Mellitus. Hematocrit Auto (Bld) [Volum e fraction]Ordered By: Emelyn Velasquez on 03-03-2023 Hematocrit (Bld) [Volume fraction] 47.5 % 34.0-46.4 [facility] Hemoglobin [Mass/volume] in BloodOrdered By: Emelyn Velasquez on 03-03-2023 Hemoglobin (Bld) [Mass/Vol] 15.6 g/dL 11.8-15.4 [facility] Leukocytes [#/volume] correc sharita for nucleated erythrocytes in Blood by Automated counOrdered By: Emelyn Velasquez on 03-03-2023 WBC corrected for nucl RBC Auto (Bld) [#/Vol] 7.5 10*3/uL 3.8-11.6 [facility] Lipid Panelon 03-03-2023 Cholesterol [Mass/Vol] 179 mg/dL Normal 140-200 [facility] Comment on above: Order Comment: Reaso n for Exam Diabetes Reason for Exam Diabetes;Essential hypertension Reason for Exam Vitamin D deficiency Result Comment: Chol less than 200 mg/dl low risk Chol 201-239 mg/dl borderline risk Chol 240 mg/dl and greater high risk Performed By: #### C USUP, LIPID, CBC, CMP, [id number], TSH3 wRFLX #### [facility] [address] [place] [id number] [facility] Cholesterol in HDL [Mass/Vol] 31 mg/dL Low 35-85 [facility] Comment on above: Order Comment: Reaso n for Exam Diabetes Reason for Exam Diabetes;Essential hypertension Reason for Exam Vitamin D deficiency Result Comment: HDL CHOL ATP-III CLASSIFICATION Cardiovascular Risk HDL > or equal to 60 mg/dL LOW HDL < 40 mg/dL HIGH Performed By: #### C USUP, LIPID, CBC, CMP, [id number], TSH3 wRFLX #### [facility] [address] [place] [id number] [place] Cholesterol.total/Choles terol in HDL [Mass ratio] 5.8 {ratio} Normal <5.0 [facility] Comment on above: Order Comment: Reaso n for Exam Diabetes Reason for Exam Diabetes;Essential hypertension Reason for Exam Vitamin D deficiency Performed By: #### C USUP, LIPID, CBC, CMP, [id number], TSH3 wRFLX #### [facility] [address] [place] [id number] [facility] LDL Cholesterol,Calculated 92 mg/dL Normal 0-100 [facility] Comment on above: Order Comment: Reaso n for Exam Diabetes Reason for Exam Diabetes;Essential hypertension Reason for Exam Vitamin D deficiency Result Comment: LDL ATP III CLASSIFICATION LDL less than 100 mg/dL Optimal LDL 100-129 mg/dL Near or above optimal LDL 130-159 mg/dL Borderline high LDL 160-189 mg/dL High LDL greater than 189 mg/dL Very high Performed By: #### C USUP, LIPID, CBC, CMP, [id number], TSH3 wRFLX #### [facility] [address] [place] [id number] [facility] Triglyceride w/Reflex 281 mg/dL High 0-149 [facility] Comment on above: Order Comment: Reaso n for Exam Diabetes Reason for Exam Diabetes;Essential hypertension Reason for Exam Vitamin D deficiency Result Comment: TRIG ATP III CLASSIFICATION TRIG less than 150 mg/dL Normal TRIG 150-199 mg/dL Borderline high TRIG 200-500 mg/dL High TRIG greater than 500 mg/dL Very high Standard traceable to the Center for Disease Conrtrol and Prevention (CDC) test method. Performed By: #### C USUP, LIPID, CBC, CMP, [id number], TSH3 wRFLX #### [facility] [address] [place] [id number] [facility] VLDL CHOLESTEROL 56 mg/dL Normal [facility] Comment on above: Order Comment: Reaso n for Exam Diabetes Reason for Exam Diabetes;Essential hypertension Reason for Exam Vitamin D deficiency Performed By: #### C USUP, LIPID, CBC, CMP, [id number], TSH3 wRFLX #### [facility] [address] [place] [id number] [place] Lymphocytes Auto (Bld) [#/Vo l]Ordered By: Emelyn Velasquez on 03-03-2023 Lymphocytes (Bld) [#/Vol] 2.2 10*3/uL 1.00-4.8 [facility] Lymphocytes/100 WBC Auto (Bl d)Ordered By: Emelyn Velasquez on 03-03-2023 Lymphocytes/100 WBC (Bld) 29.0 % . [facility] MCH Auto (RBC) [Entitic mass ]Ordered By: Emelyn Velasquez on 03-03-2023 MCH (RBC) [Entitic mass] 26.4 pg 24.7-34.3 [facility] MCHC Auto (RBC) [Mass/Vol]Or dered By: Emelyn Velasquez on 03-03-2023 MCHC (RBC) [Mass/Vol] 32.8 g/dL 32.0-35.0 [facility] MCV Auto (RBC) [Entitic vol] Ordered By: Emelyn Velasquez on 03-03-2023 MCV (RBC) [Entitic vol] 80.3 fL 80-100 [facility] Monocytes Auto (Bld) [#/Vol] Ordered By: Emelyn Velasquez on 03-03-2023 Monocytes (Bld) [#/Vol] 0.6 10*3/uL 0.0-0.8 [facility] Monocytes/100 WBC Auto (Bld) Ordered By: Emelyn Velasquez on 03-03-2023 Monocytes/100 WBC (Bld) 7.7 % . [facility] Neutrophils Auto (Bld) [#/Vo l]Ordered By: Emelyn Velasquez on 03-03-2023 Neutrophils (Bld) [#/Vol] 4.4 10*3/uL 1.8-7.7 [facility] Neutrophils/100 WBC Auto (Bl d)Ordered By: Emelyn Velasquez on 03-03-2023 Neutrophils/100 WBC (Bld) 58.8 % . [facility] No Panel InformationOrdered By: Emelyn Velasquez on 03-03-2023 Estimated GFR (CKD-EPI) > 60.0 mL/Min [facility] Creatinine Clearance (Chem N/A [facility] Nucleated erythrocytes [Pres ence] in Blood by Automated countOrdered By: Emelyn Velasquez on 03-03-2023 Nucleated RBC Auto Ql (Bld) 0.1 /100{WBC} 0-0.5 [facility] Platelet mean volume Auto (B ld) [Entitic vol]Ordered By: Emelyn Velasquez on 03-03-2023 Platelet mean volume (Bld) [Entitic vol] 9.1 fL 6.3-10.7 [facility] Platelets Auto (Bld) [#/Vol] Ordered By: Emelyn Velasquez on 03-03-2023 Platelets (Bld) [#/Vol] 303 10*3/uL 150-450 [facility] Potassium [Moles/volume] in Serum or PlasmaOrdered By: Emelyn Velasquez on 03-03-2023 Potassium [Moles/Vol] 4.0 mmol/L 3.5-5.1 [facility] Protein [Mass/volume] in Ser um or PlasmaOrdered By: Emelyn Velasquez on 03-03-2023 Protein [Mass/Vol] 6.7 g/dL 6.4-8.9 [facility] RBC Auto (Bld) [#/Vol]Ordere d By: Emelyn Velasquez on 03-03-2023 RBC (Bld) [#/Vol] 5.92 10*6/uL 3.60-5.00 [facility] Serum or plasma albumin/glob ulin mass ratioOrdered By: Emelyn Velasquez on 03-03-2023 Albumin/Globulin [Mass ratio] 1.6 {ratio} [facility] Serum or plasma anion gap de terminationOrdered By: Emelyn Velasquez on 03-03-2023 Anion gap [Moles/Vol] 10.0 mmol/L 6.0-15.0 [facility] Serum or plasma high density lipoprotein (HDL) cholesterol measurementOrdered By: Emelyn Velasquez on 03-03-2023 Cholesterol in HDL [Mass/Vol] 31 mg/dL 35-85 [facility] Comment on above: HDL CHOL ATP-III CLA SSIFICATION Cardiovascular RiskHDL > or equal to 60 mg/dL LOWHDL < 40 mg/dL HIGH Serum or plasma total choles terol/high density lipoprotein (HDL) cholesterol mass ratOrdered By: Emelyn Velasquez on 03-03-2023 Cholesterol.total/Choles terol in HDL [Mass ratio] 5.8 {ratio} <5.0 [facility] Sodium [Moles/volume] in Ser um or PlasmaOrdered By: Emelyn Velasquez on 03-03-2023 Sodium [Moles/Vol] 137 mmol/L 136-145 [facility] Superficial Wound Cultureon 03-03-2023 Superficial Wound Culture Reason for Exam Drainage from ear, left Ear, Left Reason for Exam: Drainage from ear, left : Ear, Left ORGANISM: Staphylococcus aureus (O:STAAUR) Quantity of Growth Light Growth ORGANISM: Cordelia albicans (O:CANALB) Quantity of Growth Moderate Growth Aerobic ROMAIN Charge (PCMIC38) --- SUSCEPTIBILITY -- ORGANISM: O:STAAUR ANTIBIOTIC INTERPRETATION ROMAIN Azithromycin S <2 Ceftaroline S <0.5 Ciprofloxacin S <1 Clindamycin S <0.25 Daptomycin S <0.5 Levofloxacin S <1 Linezolid S 2 Oxacillin S 0.5 Penicillin ML >2 Tetracycline S <4 Trimethoprim/Sulfameth oxazole S <0.5 Vancomycin S 1 S = SUSCEPTIBLE I = INTERMEDIATE R = RESISTANT BLANK = DATA NOT AVAILABLE, OR DRUG NOT ADVISABLE OR TESTED R* = RESISTANCE DUE TO EXTENDED SPECTRUM BETA-LACTAMASES ESBL = EXTENDED SPECTRUM BETA-LACTAMASE TFG = THYMIDINE-DEPENDENT STRAIN ML = BETA-LACTAMASE POSITIVE IB = INDUCIBLE BETA-LACTAMASE. APPEARS IN PLACE OF 'S' WITH SPECIES KNOWN TO POSSESS INDUCIBLE BETA-LACTAMASES. POTENTIALLY THEY MAY BECOME RESISTANT TO ALL B-LACTAM DRUGS. PERFORMED BY: [place] [address] PATHOLOGIST FINAL APPLICATION REVIEWER MARTIR SEALS M.D. Normal [facility] Comment on above: Performed By: #### C USUP, LIPID, CBC, CMP, [id number], TSH3 wRFLX #### [facility] [address] Thyroid Stim Hormone w/Rflxo n 03-03-2023 Thyroid Stim Hormone w/Rflx 0.58 u[iU]/mL Normal 0.45-5.33 [facility] Comment on above: Order Comment: Reaso n for Exam Diabetes Reason for Exam Diabetes;Essential hypertension Reason for Exam Vitamin D deficiency Performed By: #### C USUP, LIPID, CBC, CMP, [id number], TSH3 wRFLX #### [facility] [address] Thyrotropin [Units/volume] i n Serum or PlasmaOrdered By: Emelyn Velasquez on 03-03-2023 TSH Qn 0.58 m[IU]/L 0.45-5.33 [facility] Triglyceride [Mass/volume] i n Serum or PlasmaOrdered By: Emelyn Velasquez on 03-03-2023 Triglyceride [Mass/Vol] 281 mg/dL 0-149 [facility] Comment on above: TRIG ATP III CLASSIF ICATIONTRIG less than 150 mg/dL NormalTRIG 150-199 mg/dL Borderline highTRIG 200-500 mg/dL High TRIG greater than 500 mg/dL Very highStandard traceable to the Center for Disease Conrtrol and Prevention (CDC) test method. Urea nitrogen [Mass/volume] in Serum or PlasmaOrdered By: Emelyn Velasquez on 03-03-2023 Urea nitrogen [Mass/Vol] 9 mg/dL 7-25 [facility] Vitamin D 25 Hydroxy Totalon 03-03-2023 Vitamin D 25 Hydroxy Total 21.0 ng/mL Low 30-100 [facility] Comment on above: Order Comment: Reaso n for Exam Diabetes Reason for Exam Diabetes;Essential hypertension Reason for Exam Vitamin D deficiency Result Comment: COLIN MIN D STATUS 25(OH)VITAMIN D RANGE (ng/mL) Deficient <20 Insufficient 20 to <30 Sufficient 30 to 100 Reference: Jessy MF,Shabana NC, Anjali LAGUNA, et al. Evaluation,treatment, and prevention of vitamin D deficiency; an Endocrine Society clinical practice guideline. JCEM. 2010; 96(7):1911-30. PERFORMED BY: [facility] [address] [facility] [place] [address] PATHOLOGIST FINAL APPLICATION REVIEWER MARTIR SEALS M.D. Performed By: #### C USUP, LIPID, CBC, CMP, [id number], TSH3 wRFLX #### [facility] [address] Vitamin D+Metabolites [Mass/ volume] in Serum or PlasmaOrdered By: Emelyn Velasquez on 03-03-2023 Vitamin D+Metabolites [Mass/Vol] 21.0 ng/mL 30-100 [facility] Comment on above: VITAMIN D STATUS 25( [place])VITAMIN D RANGE (ng/mL) Deficient <20 Insufficient 20 to <30Sufficient 30 to 100Reference: Jessy MF,Shabana NC, Anjali LAGUNA, et al. Evaluation,treatment, and prevention of vitamin D deficiency; an Endocrine Society clinical practice guideline. JCEM. 2010; 96(7):1911-30. WBC Auto (Bld) [#/Vol]Ordere d By: Emelyn Velasquez on 03-03-2023 WBC (Bld) [#/Vol] 7.5 10*3/uL 3.8-11.6 [facility] Alanine aminotransferase [En zymatic activity/volume] in Serum or PlasmaOrdered By: Dalton Perez on 02-24-2023 ALT [Catalytic activity/Vol] 13 U/L 7-52 [facility] Albumin [Mass/volume] in Ser um or Plasma by Bromocresol green (BCG) dye binding methoOrdered By: Dalton Perez on 02-24-2023 Albumin BCG dye [Mass/Vol] 4.2 g/dL 3.5-5.7 [facility] Alkaline phosphatase [Enzyma tic activity/volume] in Serum or PlasmaOrdered By: Dalton Perez on 02-24-2023 ALP [Catalytic activity/Vol] 90 U/L 34-104 [facility] Aspartate aminotransferase [ Enzymatic activity/volume] in Serum or PlasmaOrdered By: Dalton Perez on 02-24-2023 AST [Catalytic activity/Vol] 11 U/L 13-39 [facility] Basophils Auto (Bld) [#/Vol] Ordered By: Dalton Perez on 02-24-2023 Basophils (Bld) [#/Vol] 0.1 10*3/uL 0.0-0.2 [facility] Basophils/100 WBC Auto (Bld) Ordered By: Dalton Perez on 02-24-2023 Basophils/100 WBC (Bld) 1.3 % . [facility] Bilirubin.total [Mass/volume ] in Serum or PlasmaOrdered By: Dalton Perez on 02-24-2023 Bilirubin [Mass/Vol] 0.3 mg/dL 0.3-1.0 [facility] Calcium [Mass/volume] in Ser um or PlasmaOrdered By: Dalton Perez on 02-24-2023 Calcium [Mass/Vol] 8.5 mg/dL 8.6-10.3 [facility] Carbon dioxide, total [Moles /volume] in Serum or PlasmaOrdered By: Dalton Perez on 02-24-2023 CO2 [Moles/Vol] 26.0 mmol/L 21.0-31.0 [facility] Chloride [Moles/volume] in S lakesh[place] or PlasmaOrdered By: Dalton Perez on 02-24-2023 Chloride [Moles/Vol] 104 mmol/L 98-107 [facility] Creatine kinase [Enzymatic a ctivity/volume] in Serum or PlasmaOrdered By: Dalton Perez 02-24-2023 CK [Catalytic activity/Vol] 90 U/L 30-223 [facility] Creatinine [Mass/volume] in Serum or PlasmaOrdered By: Dalton Perez 02-24-2023 Creatinine [Mass/Vol] 0.85 mg/dL 0.60-1.20 [facility] Eosinophils Auto (Bld) [#/Vo l]Ordered By: Dalton Perez 02-24-2023 Eosinophils (Bld) [#/Vol] 0.3 10*3/uL 0.0-0.45 [facility] Eosinophils/100 WBC Auto (Bl d)Ordered By: Dalton Perez 02-24-2023 Eosinophils/100 WBC (Bld) 3.5 % . [facility] Erythrocyte distribution wid th Auto (RBC) [Ratio]Ordered By: Dalton Perez 02-24-2023 Erythrocyte distribution width (RBC) [Ratio] 15.0 % 11.9-15.3 [facility] Globulin Calc (S) [Mass/Vol] Ordered By: Dalton Perez 02-24-2023 Globulin (S) [Mass/Vol] 3.0 g/dL [facility] Glucose [Mass/volume] in Ser um or PlasmaOrdered By: Dalton Perez 02-24-2023 Glucose [Mass/Vol] 120 mg/dL 70-100 [facility] Comment on above: ADA recommended refe rence rangeRandom Glucose Reference Range is dependent on time and content of last meal. Glucose of more than 200 mg/dL in a nonstressed, ambulatory subject supports the diagnosis of Diabetes Mellitus. Hematocrit Auto (Bld) [Volum e fraction]Ordered By: Dalton Perez on 02-24-2023 Hematocrit (Bld) [Volume fraction] 45.0 % 34.0-46.4 [facility] Hemoglobin [Mass/volume] in BloodOrdered By: Dalton Perez on 02-24-2023 Hemoglobin (Bld) [Mass/Vol] 15.0 g/dL 11.8-15.4 [facility] Laboratory - Chemistry and C hemistry - challengeOrdered By: Dalton Perez on 02-24-2023 CO2 [Moles/Vol] 23.2 mmol/L 23.0-27.0 [facility] HCO3 (Bld) [Moles/Vol] 22.2 mmol/L 23.0-29.0 [facility] Leukocytes [#/volume] correc sharita for nucleated erythrocytes in Blood by Automated counOrdered By: Dalton Perez on 02-24-2023 WBC corrected for nucl RBC Auto (Bld) [#/Vol] 8.3 10*3/uL 3.8-11.6 [facility] Lymphocytes Auto (Bld) [#/Vo l]Ordered By: Dalton Perez on 02-24-2023 Lymphocytes (Bld) [#/Vol] 2.0 10*3/uL 1.00-4.8 [facility] Lymphocytes/100 WBC Auto (Bl d)Ordered By: Dalton Perez on 02-24-2023 Lymphocytes/100 WBC (Bld) 23.7 % . [facility] MCH Auto (RBC) [Entitic mass ]Ordered By: Dalton Perez on 02-24-2023 MCH (RBC) [Entitic mass] 26.5 pg 24.7-34.3 [facility] MCHC Auto (RBC) [Mass/Vol]Or dered By: Dalton Perez on 02-24-2023 MCHC (RBC) [Mass/Vol] 33.3 g/dL 32.0-35.0 [facility] MCV Auto (RBC) [Entitic vol] Ordered By: Dalton Perez on 02-24-2023 MCV (RBC) [Entitic vol] 79.7 fL 80-100 [facility] Monocyte distribution width [Entitic volume] in Blood by AutomatedOrdered By: Dalton Perez on 02-24-2023 Monocyte distribution width Auto (Bld) [Entitic vol] 16.59 % 0.00-20.00 [facility] Monocytes Auto (Bld) [#/Vol] Ordered By: Dalton Perez on 02-24-2023 Monocytes (Bld) [#/Vol] 0.6 10*3/uL 0.0-0.8 [facility] Monocytes/100 WBC Auto (Bld) Ordered By: Dalton Perez on 02-24-2023 Monocytes/100 WBC (Bld) 6.8 % . [facility] Natriuretic peptide B [Mass/ Vol]Ordered By: Dalton Perez on 02-24-2023 Natriuretic peptide B (Bld) [Mass/Vol] 16.0 pg/mL 5-100 [facility] Neutrophils Auto (Bld) [#/Vo l]Ordered By: Dalton Perez on 02-24-2023 Neutrophils (Bld) [#/Vol] 5.4 10*3/uL 1.8-7.7 [facility] Neutrophils/100 WBC Auto (Bl d)Ordered By: Dalton Perez on 02-24-2023 Neutrophils/100 WBC (Bld) 64.7 % . [facility] No Panel InformationOrdered By: Dalton Perez on 02-24-2023 Arterial Blood Base Excess -1.6 mmol/L -3.0-3.0 [facility] Arterial Blood Oxygen Content 8.8 mmol/L 6.6-9.7 [facility] Arterial Blood Oxygen Saturation 96.4 % 95.0-100.0 [facility] Arterial Blood Partial Pressure CO2 34.8 mm[Hg] 35.0-45.0 [facility] Arterial Blood Partial Pressure O2 76.2 mm[Hg] 80.0-100.0 [facility] Arterial Blood pH 7.42 7.35-7.45 [facility] Blood Gas Critical Value See comment [facility] Comment on above: Critical Value corrales d on: 02/24/2023 at 13:59 Blood Gas Sample Site Left radial Fi [facility] FiO2 21 % [facility] Blood Gas Specimen Type Arterial [facility] Carboxyhemoglobin 5.4 % 0.0-3.0 [facility] Estimated GFR (CKD-EPI) > 60.0 mL/Min [facility] Creatinine Clearance (Chem 83.37 [facility] Nucleated erythrocytes [Pres ence] in Blood by Automated countOrdered By: Dalton Perez on 02-24-2023 Nucleated RBC Auto Ql (Bld) 0.2 /100{WBC} 0-0.5 [facility] Platelet mean volume Auto (B ld) [Entitic vol]Ordered By: Dalton Perez on 02-24-2023 Platelet mean volume (Bld) [Entitic vol] 8.8 fL 6.3-10.7 [facility] Platelets Auto (Bld) [#/Vol] Ordered By: Dalton Perez on 02-24-2023 Platelets (Bld) [#/Vol] 275 10*3/uL 150-450 [facility] Potassium [Moles/volume] in Serum or PlasmaOrdered By: Dalton Perez on 02-24-2023 Potassium [Moles/Vol] 3.5 mmol/L 3.5-5.1 [facility] Protein [Mass/volume] in Ser um or PlasmaOrdered By: Dalton Perez on 02-24-2023 Protein [Mass/Vol] 7.2 g/dL 6.4-8.9 [facility] RBC Auto (Bld) [#/Vol]Ordere d By: Dalton Perez on 02-24-2023 RBC (Bld) [#/Vol] 5.64 10*6/uL 3.60-5.00 [facility] Serum or plasma albumin/glob ulin mass ratioOrdered By: Dalton Perez on 02-24-2023 Albumin/Globulin [Mass ratio] 1.4 {ratio} [facility] Serum or plasma anion gap de terminationOrdered By: Dalton Perez on 02-24-2023 Anion gap [Moles/Vol] 12.5 mmol/L 6.0-15.0 [facility] Sodium [Moles/volume] in Ser um or PlasmaOrdered By: Dalton Perez on 02-24-2023 Sodium [Moles/Vol] 139 mmol/L 136-145 [facility] Troponin I.cardiac [Mass/vol ume] in Serum or Plasma by Detection limit <= 0.01 ng/Ordered By: Dalton Perez on 02-24-2023 Troponin I.cardiac DL <= 0.01 ng/mL [Mass/Vol] 3.0 pg/mL 0.0-15.0 [facility] Urea nitrogen [Mass/volume] in Serum or PlasmaOrdered By: Dalton Perez on 02-24-2023 Urea nitrogen [Mass/Vol] 9 mg/dL 7-25 [facility] WBC Auto (Bld) [#/Vol]Ordere d By: Dalton Perez on 02-24-2023 WBC (Bld) [#/Vol] 8.3 10*3/uL 3.8-11.6 [facility] Basophils Auto (Bld) [#/Vol] Ordered By: Emelyn Velasquez on 11-30-2022 Basophils (Bld) [#/Vol] 0.1 10*3/uL 0.0-0.2 [facility] Basophils/100 WBC Auto (Bld) Ordered By: Emelyn Velasquez on 11-30-2022 Basophils/100 WBC (Bld) 0.6 % . [facility] Body fluid albumin measureme nt (mass/volume)Ordered By: Emelyn Velasquez on 11-30-2022 Albumin (Body fld) [Mass/Vol] 3.8 g/dL 3.2-5.5 [facility] Creatinine and Glomerular fi ltration rate.predicted panel (S/P/Bld)Ordered By: Emelyn Velasquez on 11-30-2022 Creatinine [Mass/Vol] 0.78 mg/dL 0.44-1.03 [facility] Eosinophils Auto (Bld) [#/Vo l]Ordered By: Emelyn Velasquez on 11-30-2022 Eosinophils (Bld) [#/Vol] 0.3 10*3/uL 0.0-0.45 [facility] Eosinophils/100 WBC Auto (Bl d)Ordered By: mEelyn Velasquez on 11-30-2022 Eosinophils/100 WBC (Bld) 3.0 % . [facility] Erythrocyte distribution wid th Auto (RBC) [Ratio]Ordered By: Emelyn Velasquez on 11-30-2022 Erythrocyte distribution width (RBC) [Ratio] 15.7 % 11.9-15.3 [facility] Estimated glomerular filtrat ion rate (GFR) non- AmericanOrdered By: Emelyn Velasquez on 11-30-2022 GFR/1.73 sq M.predicted among non-blacks MDRD (S/P/Bld) [Vol rate/Area] > 60 mL/Min [facility] Globulin Calc (S) [Mass/Vol] Ordered By: Emelyn Velasquez on 11-30-2022 Globulin (S) [Mass/Vol] 2.6 g/dL [facility] Hematocrit Auto (Bld) [Volum e fraction]Ordered By: Emelyn Velasquez on 11-30-2022 Hematocrit (Bld) [Volume fraction] 45.4 % 34.0-46.4 [facility] Hemoglobin [Mass/volume] in BloodOrdered By: Emelyn Velasquez on 11-30-2022 Hemoglobin (Bld) [Mass/Vol] 14.7 g/dL 11.8-15.4 [facility] Leukocytes [#/volume] correc sharita for nucleated erythrocytes in Blood by Automated counOrdered By: Emelyn Velasquez on 11-30-2022 WBC corrected for nucl RBC Auto (Bld) [#/Vol] 9.8 10*3/uL 3.8-11.6 [facility] Lymphocytes Auto (Bld) [#/Vo l]Ordered By: Emelyn Velasquez on 11-30-2022 Lymphocytes (Bld) [#/Vol] 1.9 10*3/uL 1.00-4.8 [facility] Lymphocytes/100 WBC Auto (Bl d)Ordered By: Emelyn Velasquez on 11-30-2022 Lymphocytes/100 WBC (Bld) 19.4 % . [facility] MCH Auto (RBC) [Entitic mass ]Ordered By: Emelyn Velasquez on 11-30-2022 MCH (RBC) [Entitic mass] 26.0 pg 24.7-34.3 [facility] MCHC Auto (RBC) [Mass/Vol]Or dered By: Emelyn Velasquez on 11-30-2022 MCHC (RBC) [Mass/Vol] 32.3 g/dL 32.0-35.0 [facility] MCV Auto (RBC) [Entitic vol] Ordered By: Emelyn Velasquez on 11-30-2022 MCV (RBC) [Entitic vol] 80.5 fL 80-100 [facility] Monocytes Auto (Bld) [#/Vol] Ordered By: Emelyn Velasquez on 11-30-2022 Monocytes (Bld) [#/Vol] 0.7 10*3/uL 0.0-0.8 [facility] Monocytes/100 WBC Auto (Bld) Ordered By: Emelyn Velasquez on 11-30-2022 Monocytes/100 WBC (Bld) 7.2 % . [facility] Neutrophils Auto (Bld) [#/Vo l]Ordered By: Emelyn Velasquez on 11-30-2022 Neutrophils (Bld) [#/Vol] 6.9 10*3/uL 1.8-7.7 [facility] Neutrophils/100 WBC Auto (Bl d)Ordered By: Emelyn Velasquez on 11-30-2022 Neutrophils/100 WBC (Bld) 69.8 % . [facility] No Panel InformationOrdered By: Emelyn Velasquez on 11-30-2022 Estimated GFR () > 60 mL/Min [facility] Comment on above: GFR estimated refere nce range: According to KDOQI guidelines, <60 ml/min/1.73m2 is sufficient to diagnose a patient with chronic kidney disease. Pharmacy Creatinine Clearance (Chem N/A [facility] Nucleated erythrocytes [Pres ence] in Blood by Automated countOrdered By: Emelyn Velasquez on 11-30-2022 Nucleated RBC Auto Ql (Bld) 0.1 /100{WBC} 0-0.5 [facility] Platelet mean volume Auto (B ld) [Entitic vol]Ordered By: Emelyn Velasquez on 11-30-2022 Platelet mean volume (Bld) [Entitic vol] 9.2 fL 6.3-10.7 [facility] Platelets Auto (Bld) [#/Vol] Ordered By: Emelyn Velasquez on 11-30-2022 Platelets (Bld) [#/Vol] 302 10*3/uL 150-450 [facility] Protein [Mass/volume] in Ser um or PlasmaOrdered By: Emelyn Velasquez on 11-30-2022 Protein [Mass/Vol] 6.4 g/dL 6.1-7.9 [facility] RBC Auto (Bld) [#/Vol]Ordere d By: Emelyn Velasquez on 11-30-2022 RBC (Bld) [#/Vol] 5.65 10*6/uL 3.60-5.00 [facility] Serum or plasma alanine ramirez otransferase measurement without P-5'-P (enzymatic activiOrdered By: Emelyn Velasquez on 11-30-2022 ALT No additional P-5'-P [Catalytic activity/Vol] 16 U/L 10-60 [facility] Serum or plasma albumin/glob ulin mass ratioOrdered By: Emelyn Vealsquez on 11-30-2022 Albumin/Globulin [Mass ratio] 1.5 {ratio} [facility] Serum or plasma alkaline teressa sphatase measurement (enzymatic activity/volume)Ordered By: Emelyn Velasquez on 11-30-2022 ALP [Catalytic activity/Vol] 100 U/L 32-92 [facility] Serum or plasma anion gap de terminationOrdered By: Emelyn Velasquez on 11-30-2022 Anion gap [Moles/Vol] 14.7 mmol/L 6.0-15.0 [facility] Serum or plasma aspartate am inotransferase measurement (enzymatic activity/volume)Ordered By: Emelyn Velasquez on 11-30-2022 AST [Catalytic activity/Vol] 14 U/L 10-42 [facility] Serum or plasma calcium nanette urement (mass/volume)Ordered By: Emelyn Velasquez on 11-30-2022 Calcium [Mass/Vol] 9.3 mg/dL 8.2-10.2 [facility] Serum or plasma chloride roberto surement (moles/volume)Ordered By: Emelyn Velasquez on 11-30-2022 Chloride [Moles/Vol] 103 mmol/L 95-114 [facility] Serum or plasma glucose nanette urement (mass/volume)Ordered By: Emelyn Velasquez on 11-30-2022 Glucose [Mass/Vol] 175 mg/dL 70-100 [facility] Comment on above: ADA recommended refe rence rangeRandom Glucose Reference Range is dependent on time and content of last meal. Glucose of more than 200 mg/dL in a nonstressed, ambulatory subject supports the diagnosis of Diabetes Mellitus. Serum or plasma potassium me asurement (moles/volume)Ordered By: Emelyn Velasquez on 11-30-2022 Potassium [Moles/Vol] 4.2 mmol/L 3.5-5.1 [facility] Serum or plasma sodium measu rement (moles/volume)Ordered By: Emelyn Velasquez on 11-30-2022 Sodium [Moles/Vol] 139 mmol/L 136-146 [facility] Serum or plasma total biliru bin measurement (mass/volume)Ordered By: Emelyn Velasquez on 11-30-2022 Bilirubin [Mass/Vol] 0.3 mg/dL 0.3-1.2 [facility] Serum or plasma total carbon dioxide measurement (moles/volume)Ordered By: Emelyn Velasquez on 11-30-2022 CO2 [Moles/Vol] 25.5 mmol/L 22.0-30.0 [facility] Serum or plasma urea nitroge n measurement (mass/volume)Ordered By: Emelyn Velasquez on 11-30-2022 Urea nitrogen [Mass/Vol] 6 mg/dL 9-23 [facility] TSH DL <= 0.005 mIU/L QnOrde red By: Emelyn Velasquez on 11-30-2022 TSH Qn 0.70 m[IU]/L 0.45-5.33 [facility] WBC Auto (Bld) [#/Vol]Ordere d By: Emelyn Velasquez on 01-31-2023 WBC (Bld) [#/Vol] 9.8 10*3/uL 3.8-11.6 [facility] Lab - Toxicology Resultson 0 06-11-2021 Lab - Toxicology Results [id number] Normal [facility] Industrial Breath Ming 06-10 Industrial Breath [place] Collected Normal [facility] Comment on above: Performed By: #### 1 [id number] #### [facility] (DEFAULT) [address] [place] [address] Vital Signs Date Time Vital Sign Value Performing Clinician Faci lity 02-14-2024 17:30-0400 Diastolic blood pressure 74 mm[Hg] KILN PUSHER-C Emelyn Spasic Work Phone: [facility] 02-14-2024 17:30-0400 Heart rate 74 /min [facility] P[facility] Emelyn Spasic Work Phone: [facility] 02-14-2024 17:30-0400 Respiratory rate 16 /min [facility] PUS[facility] Emelyn Spasic Work Phone: [facility] 02-14-2024 17:30-0400 SaO2% (BldA) [Mass fraction] 95 % [facility]IL[facility] PUSHER-C Emelyn Spasic Work Phone: [facility] 02-14-2024 17:30-0400 Systolic blood pressure 118 mm[Hg] KILN PUSHER-C Emelyn Spasic Work Phone: [facility] 02-14-2024 14:02-0400 Body height 160.02 cm KILN PUSHER-C Emelyn Spasic Work Phone: [facility] 02-14-2024 14:02-0400 Body temperature 97.6 [degF] KILN PUSHER-C Emelyn Spasic Work Phone: [facility] 02-14-2024 14:02-0400 Body weight 78.1 kg KILN PUSHER-C Emelyn Spasic Work Phone: [facility] 02-24-2023 15:17-0400 Diastolic blood pressure 84 mm[Hg] [facility] Work Phone: [facility] 02-24-2023 15:17-0400 Heart rate 78 /min [facility] Work Phone: [facility] 02-24-2023 15:17-0400 Respiratory rate 18 /min [facility] Work Phone: [facility] 02-24-2023 15:17-0400 SaO2% (BldA) [Mass fraction] 98 % [facility] [employer] Work Phone: [facility] 02-24-2023 15:17-0400 Systolic blood pressure 131 mm[Hg] [facility] Work Phone: [facility] 02-24-2023 13:16-0400 Body height 161.29 cm [facility] Work Phone: [facility] 02-24-2023 13:16-0400 Body temperature 98 [degF] [facility] Work Phone: [facility] 02-24-2023 13:16-0400 Body weight 81.05 kg Services [facility] Work Phone: [facility] Encounters Encounter Date Encounter Type Care Provider Facility Start: 02-14-2024 End: 02-14-2024 Emergency department patient visit KILN PUSHER-C Emelyn Spasic Work Phone: [facility] Work Phone: Start: 12-07-2023 End: 12-07-2023 ambulatory Emelyn E Spasic Facility:[facility] Start: 12-07-2023 End: 12-07-2023 ambulatory KILN PUSHER-C Emelyn Spasic Work Phone: [facility] Work Phone: Start: 12-07-2023 End: 12-07-2023 Departed Referred KILN PUSHER-C Emelyn Spasic Work Phone: [facility] Start: 11-22-2023 End: 11-22-2023 ambulatory Emelyn E Spasic Facility:[facility] Start: 11-22-2023 End: 11-22-2023 Departed Referred KILN PUSHER-C Emelyn Spasic Work Phone: [facility] Start: 10-11-2023 End: 10-11-2023 ambulatory Emelyn E Spasic Facility:[facility] Start: 10-11-2023 End: 10-11-2023 ambulatory KILN PUSHER-C Emelyn Spasic Work Phone: [facility] Work Phone: Start: 10-11-2023 End: 10-11-2023 Departed Referred KILN PUSHER-C Emelyn Spasic Work Phone: [facility] Start: 06-21-2023 End: 06-21-2023 ambulatory Emelyn E Spasic Facility:[facility] Start: 06-21-2023 End: 06-21-2023 ambulatory PHYSICIAN NO FAMILY [facility] Work Phone: Start: 06-21-2023 End: 06-21-2023 Departed Referred PHYSICIAN NO FAMILY [facility] Start: 04-04-2023 End: 04-04-2023 ambulatory Emelyn E Spasic Facility:[facility] Start: 04-04-2023 End: 04-04-2023 ambulatory [facility] Work Phone: [facility] Work Phone: Start: 04-04-2023 End: 04-04-2023 Departed Referred [facility] Work Phone: [facility] Start: 03-03-2023 End: 03-03-2023 ambulatory Emelyn E Spasic Facility:[facility] Start: 03-03-2023 End: 03-03-2023 Departed Referred [facility] Work Phone: [facility] Start: 02-24-2023 End: 02-24-2023 Emergency department patient visit [facility] Work Phone: [facility] Work Phone: Start: 11-30-2022 End: 11-30-2022 ambulatory [facility] Work Phone: [facility] Work Phone: Start: 11-30-2022 End: 11-30-2022 Departed Referred Services [facility] Work Phone: [facility] Start: 06-14-2022 ambulatory Collin Terence Maninder [id number] Procedures Date Procedure Procedure Detail Performing Clinician Start: 04-04-2023 Respiratory Panel (PCR) Services [facility] Work Phone: Start: 03-03-2023 Aerobic microbial culture [facility] Work Phone: Start: 02-24-2023 Plain chest X-ray Servi desean [facility] Work Phone: Plan of Treatment Date Care Activity Detail Author Glucose measurement estimated from glycated hemoglobin [facility] enter Hemoglobin A1c/Hemoglobin.total in Blood [facility] Patient Education [facility] Work Phone: Patient referral [facility] Work Phone: Thyrotropin [Units/v olume] in Serum or Plasma [facility] enter Thyroxine (T4) free index in Serum or Plasma by calculation [facility] enter Thyroxine measurement [facility] Triiodothyronine (T3 ) [Mass/volume] in Serum or Plasma [facility] enter Triiodothyronine res in uptake (T3RU) in Serum or Plasma [facility] enter Payers Date Payer Category Payer Unknown [id number] 2023 Self-pay [id number] 2023 Unknown [id number] 2023 Unknown [id number] 1975 Unknown [id number] 56 Medicaid [id number] Unknown [id number] 31 Unknown [id number] 31 Unknown [id number] 31 Unknown [id number] 31 Unknown [id number] 31 Unknown [id number] 31 Unknown [id number] 31 Worker's Compensation [employer] Misc [id number] Worker's Compensation [id number] Social History Date Type Detail Facility Start: 04-01-2022 End: 02-14-2024 Tobacco smoking status NEIS Smoker (finding) [facility] Start: 1975 Sex Assigned At Female [facility] Start: 02-24-2023 End: 02-24-2023 Tobacco smoking status NEIS Never smoked tobacco (finding) [facility] Medical Equipment Procedure Code Equipment Code Equipment Origin al Text Equipment Identifier Dates CL CLOSURE DEVIC E EXOSEAL 6F FDA Start: 01-31-2018 CL STENT XIENCE ALP 3.5 X 08 FDA Start: 01-31-2018 CL STENT XIENCE ALP 4.0 X 18 FDA Start: 01-31-2018 CL CLOSURE DEVIC E EXOSEAL 6F FDA Start: 01-31-2018 CL STENT XIENCE ALP 3.5 X 08 FDA Start: 01-31-2018 CL STENT XIENCE ALP 4.0 X 18 FDA Start: 01-31-2018 CL CLOSURE DEVIC E EXOSEAL 6F FDA Start: 01-31-2018 CL STENT XIENCE ALP 3.5 X 08 FDA Start: 01-31-2018 CL STENT XIENCE ALP 4.0 X 18 FDA Start: 01-31-2018 CL CLOSURE DEVIC E EXOSEAL 6F FDA Start: 01-31-2018 CL STENT XIENCE ALP 3.5 X 08 FDA Start: 01-31-2018 CL STENT XIENCE ALP 4.0 X 18 FDA Start: 01-31-2018 CL CLOSURE DEVIC E EXOSEAL 6F FDA Start: 01-31-2018 CL STENT XIENCE ALP 3.5 X 08 FDA Start: 01-31-2018 CL STENT XIENCE ALP 4.0 X 18 FDA Start: 01-31-2018 CL CLOSURE DEVIC E EXOSEAL 6F FDA Start: 01-31-2018 CL STENT XIENCE ALP 3.5 X 08 FDA Start: 01-31-2018 CL STENT XIENCE ALP 4.0 X 18 FDA Start: 01-31-2018 CL CLOSURE DEVIC E EXOSEAL 6F FDA Start: 01-31-2018 CL STENT XIENCE ALP 3.5 X 08 FDA Start: 01-31-2018 CL STENT XIENCE ALP 4.0 X 18 FDA Start: 01-31-2018 Evaluation note Note Date & Type Note Facility Evaluation note No assessment information availa ble [facility] Work Phone: Hospital Discharge instructions Note Date & Type Note Facility Hospital Discharge instructions Additional Instructions Continue current medications Follow-up with your family doctor regarding the Mounjaro and if continuing next month Return to the ER for confusion dizziness fever or any other concerns [facility] Work Phone: Summary Purpose Family History No Family History Records FoundNo Family History Records FoundNo Family History Records Found Advance Directives No Advanced Directives Records Found Advance Directive Response Recorded Date/ Time Advance Directives No September 11:48am Advance Directive Response Recorded Date/ Time Advance Directives No September 12:48pm Chief Complaint and Reason for Visit Chief Complaint Diabetes Chief Complaint poss co2 exposure Chief Complaint poss co2 exposure H92.12 E11.9 Acute cough Chief Complaint Acute cough Diabetes Chief Complaint 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 DATE CREATED AUTHOR AUTHOR'S ORGANIZ ATION 02/26/2024 [facility] Care Teams (unrecognized sec tion and content) Team Status: Inactive Member Role Status Dates Services [facility] Primary Care Provider Active Emelyn Velasquez KILN PUSHER-C Attending Provider Active Team Status: Active Member Role Status Dates Services [facility] Primary Care Provider Active Team Status: Inactive Member Role Status Dates Services [facility] Primary Care Provider Active Dalton Perez PA-C Emergency Provider Active Team Status: Inactive Member Role Status Dates Emelyn Velasquez KILN PUSHER-C Attending Provider Active Team Status: Inactive Member Role Status Dates Emelyn Velasquez KILN PUSHER-C Attending Provider Active PHYSICIAN NO FAMILY Primary Care Provider Active Team Status: Inactive Member Role Status Dates Emelyn Velasquez KILN PUSHER-C Attending Provider Active Start: October 11, 2023 End: October 11, 2023 Team Status: Inactive Member Role Status Dates Emelyn Velasquez KILN PUSHER-C Attending Provider Active Start: November 22, 2023 End: November 22, 2023 Team Status: Inactive Member Role Status Dates Emelyn Velasquez , KILN PUSHER-C Attending Provider Active Start: December 07, 2023 End: December 07, 2023 Team Status: Active Member Role Status Dates Emelyn Velasquez KILN PUSHER-C Primary Care Provider Active Team Status: Inactive Member Role Status Dates Emelyn Velasquez , KILN PUSHER-C Primary Care Provider Active Start: February 14, 2024 End: February 14, 2024 ALEXANDER Coreas Emergency Provider Active Start: February 14, 2024 End: February 14, 2024 Goals (unrecognized section and content) Goals may be documented in a n alternate sectionGoals may be documented in an alternate sectionGoals may be documented in an alternate sectionGoals may be documented in an alternate sectionGoals may be documented in an alternate sectionGoals may be documented in an alternate sectionGoals may be documented in an alternate section FOR RECORDS PERTAINING TO PATIENTS WHO ARE OR HAVE BEEN ENROLLED IN A CHEMICAL DEPENDENCY/SUBSTANCEABUSE PROGRAM, SOME INFORMATION MAY BE OMITTED. This clinical summary was aggregated from multiple sources. Caution should be exercised in using it in the provision of clinical care. This summary normalizes information from multiple sources, and as a consequence, information in this document may materially change the coding, format and clinical context of patient data. In addition, data may be omitted in some cases. CLINICAL DECISIONS SHOULD BE BASED ON THE PRIMARY CLINICAL RECORDS. [facility]. provides no warranty or guarantee of the accuracy or completeness of information in this document.
--- NOTE | 2024-04-02 19:19 | ECG_ITS ---
[facility] Test Date: 2024-04-02 Pat Name: JESUSITA ALAN Department: Room: - Gender: Female [employer]: : [id number] Requested By: [id number] Order Number: [id number] Reading MD: INGRID DE LA TORRE Measurements Intervals Bath Rate: 103 P: 49 MT: 134 QRS: 17 QRSD: 82 T: 20 QT: 336 QTc: 395 Interpretive Statements 1120 Sinus tachycardia 4068 Nonspecific Twave abnormality 9140 abnormal rhythm ECG No previous ECG available for comparison Electronically Signed On 04-03-2024 6:39:09 EDT by INGRID DE LA TORRE
--- NOTE | 2024-04-02 19:20 | CT_ITS ---
The [address] [address] Patient Name: JESUSITA ALAN MRN: [id number] date: 1975 Sex: F Assigned Patient Location: ER Current Patient Location: ER Accession/Order Number: [id number] Exam Date: 04/02/2024 20:05 Report Date: 04/02/2024 21:48 At the request of: GIANNA CORREA Procedure: CT abdomen pelvis w con EXAM: CT abdomen pelvis w con HISTORY: Upper abdominal pain COMPARISON: None. TECHNIQUE: Axial CT imaging was performed through the abdomen and pelvis with intravenous contrast. Multiplanar reformats were performed. Dose reduction techniques were achieved by using automated exposure control and/or adjustment of mA and/or kV according to patient size and/or use of iterative reconstruction technique. FINDINGS: Lung bases: Lung bases are clear. No pleural effusion. GI upper: Unremarkable. Liver: Normal size and contour. Gallbladder: No significant abnormality. No cholelithiasis. Biliary system: No intra or extrahepatic biliary ductal dilatation. Spleen: Normal size. Pancreas: Unremarkable. Adrenal glands: Normal adrenal glands. Kidneys/ureters: Normal contours. No hydronephrosis. No nephrolithiasis or ureterolithiasis. There is a 1.8 cm left renal simple cyst. Vessels: No aneurysm. Lymph Nodes: No lymphadenopathy. Small bowel: No wall thickening or dilatation. Colon: No wall thickening or dilatation. Appendix: No findings of appendicitis. Peritoneal cavity: No free fluid or pneumoperitoneum. Lower : Unremarkable. Bones: No acute bony abnormality. Soft tissues: No acute finding. Additional findings: None. CT/CT abdomen pelvis w con IMPRESSION: No acute abnormality. Electronically authenticated by: SHAYY MOURA Date: 04/02/2024 21:48
--- NOTE | 2024-04-02 19:20 | ED_ITS ---
HPI - Abdominal Pain General Chief Complaint: Abdominal Pain Stated Complaint: severe abdominal pain, nausea Time Seen by Provider: 04/02/24 19:16 Source: patient Mode of arrival: walk-in History of Present Illness HPI narrative: 48-year-old female presents for upper abdominal pain. It began this morning and she is never had pain like this before. She has been nauseous but no vomiting diarrhea or constipation. She is currently on her period. She does not complain of lower abdominal pain. No trauma or fever or chest pain. Related Data Home Medications ?Medication ?Instructions ?Recorded ?Confirmed atorvastatin 80 mg tablet 80 mg PO DAILY 04/02/24 04/02/24 clopidogrel 75 mg tablet 75 mg PO DAILY 04/02/24 04/02/24 empagliflozin 10 mg tablet 10 mg PO DAILY 04/02/24 04/02/24 (Jardiance) famotidine 20 mg tablet 20 mg PO DAILY 04/02/24 04/02/24 levothyroxine 150 mcg tablet 150 mcg PO DAILY 04/02/24 04/02/24 lisinopril 20 mg tablet 20 mg PO DAILY 04/02/24 04/02/24 nitroglycerin 0.4 mg sublingual 0.4 mg sublingual Q5M PRN chest 04/02/24 04/02/24 tablet pain pantoprazole 40 mg tablet,delayed 40 mg PO DAILY 04/02/24 04/02/24 release tirzepatide 5 mg/0.5 mL 7.5 mg subcut QWEEK 04/02/24 04/02/24 subcutaneous pen injector (Amanda) Previous Rx's ?Medication ?Instructions ?Recorded acetaminophen 300 mg-codeine 30 mg 1 tab PO Q6H PRN pain 5 days #20 04/02/24 tablet tabs Allergies Allergy/AdvReac Type Severity Reaction Status Date / Time No Known Drug Allergies Allergy Verified 04/02/24 19:00 Review of Systems ROS Narrative A ten point review of systems is negative except as noted above. Exam Narrative Exam Narrative: Nurses note and vital signs reviewed and patient is not hypoxic. General: The patient appears well and in no apparent distress. Patient is resting comfortably on cart. Skin: Warm, dry, no pallor noted. There is no rash noted. Head: Normocephalic, atraumatic Eye: Normal conjunctiva, no drainage Ears, Nose, Mouth, and Throat: oral mucosa is moist. Nares patent. Cardiovascular: Regular Rate and Rhythm Respiratory: Patient is in no distress, no accessory muscle use, lungs are clear to auscultation, no wheezing, rales or rhonchi Back: non-tender GI: Normal bowel sounds, tenderness present across her upper abdomen, none on the lower abdomen. No masses or rebound. Musculoskeletal: The patient has no evidence of calf tenderness, no pitting edema, symmetrical pulses noted bilaterally Neurological: A&O, normal speech Psychiatric: Cooperative Constitutional Vital Signs, click to edit/add: Last Vital Signs Temp 97.9 F 04/02/24 18:53 Pulse 108 H 04/02/24 21:50 Resp 18 04/02/24 21:50 BP 123/80 04/02/24 21:50 Pulse Ox 96 04/02/24 21:50 O2 Del Method Room Air 04/02/24 18:53 Course Vital Signs Vital signs: Vital Signs Temperature 97.9 F 04/02/24 18:53 Pulse Rate 107 H 04/02/24 18:53 Respiratory Rate 18 04/02/24 18:53 Blood Pressure 144/89 H 04/02/24 18:53 Pulse Oximetry 98 04/02/24 18:53 Oxygen Delivery Method Room Air 04/02/24 18:53 Temperature 97.9 F 04/02/24 18:53 Pulse Rate 108 H 04/02/24 21:50 Respiratory Rate 18 04/02/24 21:50 Blood Pressure 123/80 04/02/24 21:50 Pulse Oximetry 96 04/02/24 21:50 Oxygen Delivery Method Room Air 04/02/24 18:53 MDM - Abdominal Pain MDM Narrative Medical decision making narrative: WBC is 15,000 but the CAT scan is negative. She has been trying to loosen a metal nut today before this started and it certainly possible that she strained her abdominal wall. Treatment diagnosis and follow-up were discussed with the patient. Differential Diagnosis Differential diagnosis: Likely abdominal pain, constipation, diverticulitis, gastroenteritis, pancreatitis and small bowel obstruction Lab Data Attestation: I reviewed the patient's lab results. Labs: Lab Results 04/02/24 Range/Units 19:19 WBC 15.1 H (4.0-11.0) 10^3/uL RBC 5.60 H (4.20-5.40) 10^6/uL Hgb 14.9 (12.0-16.0) g/dL Hct 45.4 (36.0-48.0) % MCV 81.1 (81.0-99.0) fL MCH 26.6 L (26.7-34.0) pg MCHC 32.8 (29.9-35.2) g/dL RDW 13.7 (11.0-15.0) % Plt Count 324 (150-450) 10^3/uL MPV 10.7 (9.5-13.5) fL Neut % (Auto) 87.6 H (43.0-75.0) % Lymph % (Auto) 5.8 L (20.5-60.0) % Sullivan % (Auto) 4.7 (1.7-12.0) % Eos % (Auto) 1.3 (0.9-7.0) % Baso % (Auto) 0.3 (0.2-2.0) % Neut # (Auto) 13.2 H (1.4-6.5) 10^3/uL Lymph # (Auto) 0.9 L (1.2-3.8) 10^3/uL Sullivan # (Auto) 0.7 (0.3-0.8) 10^3/uL Eos # (Auto) 0.2 (0.0-0.7) 10^3/uL Baso # (Auto) 0.1 (0.0-0.1) 10^3/uL Abs Immat Gran (auto) 0.05 H (0.00-0.03) 10^3/uL Imm/Tot Granulo (auto) 0.3 (0.0-0.5) % Sodium 139 (136-145) mmol/L Potassium 3.5 (3.5-5.1) mmol/L Chloride 103 (98-107) mmol/L Carbon Dioxide 24.4 (21.0-32.0) mmol/L Anion Gap 15.1 BUN 13.0 (7.0-18.0) mg/dL Creatinine 0.75 (0.55-1.02) mg/dL Est GFR ( Amer) >60 (>=60) Est GFR (Non-Af Amer) >60 (>=60) BUN/Creatinine Ratio 17.3 Glucose 164 H (74-106) mg/dL Calcium 8.2 L (8.5-10.1) mg/dL Total Bilirubin 0.5 (0.2-1.0) mg/dL Direct Bilirubin 0.1 (0.0-0.2) mg/dL AST 13 L (15-37) U/L ALT 13 L (14-59) U/L Alkaline Phosphatase 113 (46-116) U/L Troponin I High Sens <4.0 L (4.0-51.3) pg/mL Total Protein 7.2 (6.4-8.2) g/dL Albumin 3.5 (3.4-5.0) g/dL Globulin 3.7 g/dL Albumin/Globulin Ratio 0.9 Amylase 31 (25-115) U/L Lipase 34.0 (16.0-77.0) U/L Serum HCG, Qual Negative (NEGATIVE) Imaging Data CT scan - abdomen: Radiologist's impression: ITS Impressions Abdomen/Pelvis CT 04/02/24 19:20 IMPRESSION: No acute abnormality. Electronically authenticated by: SHAYY MOURA Date: 04/02/2024 21:48 ECG Data Attestation: I personally reviewed and interpreted this ECG as follows: (EKG on my interpretation shows sinus rhythm with a rate of 103 and no acute change.) Discharge Plan Discharge Stand Alone Forms: Portal Instructions Chief Complaint: Abdominal Pain Clinical Impression: Abdominal pain Patient Disposition: Home, Self-Care Time of Disposition Decision: 21:57 Condition: Good Mode of Transportation: Private Vehicle Prescriptions / Home Meds: New acetaminophen-codeine 300-30 mg tablet 1 tab PO Q6H PRN (Reason: pain) 5 Days Qty: 20 0RF No Action atorvastatin 80 mg tablet 80 mg PO DAILY lisinopril 20 mg tablet 20 mg PO DAILY clopidogrel 75 mg tablet 75 mg PO DAILY levothyroxine 150 mcg tablet 150 mcg PO DAILY nitroglycerin 0.4 mg tablet, sublingual 0.4 mg sublingual Q5M PRN (Reason: chest pain) Mounjaro 5 mg/0.5 mL pen injector 7.5 mg SUBCUT QWEEK pantoprazole 40 mg tablet,delayed release (DR/EC) 40 mg PO DAILY Jardiance 10 mg tablet 10 mg PO DAILY famotidine 20 mg tablet 20 mg PO DAILY Print Language: French Instructions: Abdominal Pain (ED) Referrals: Physician,Non-Staff, [Physician] - 1 week
[2024-04-02 19:32] LABS: Basophils Absolute Auto 0.1 10^3/uL (0.0-0.1); Basophils Percent Auto 0.3 % (0.2-2.0); Eosinophils Absolute Auto 0.2 10^3/uL (0.0-0.7); Eosinophils Percent Auto 1.3 % (0.9-7.0); Hematocrit 45.4 % (36.0-48.0); Hemoglobin 14.9 g/dL (12.0-16.0); Immature Granulocytes Abs Auto 0.05 10^3/uL (0.00-0.03); Immature Granulocytes Pct Auto 0.3 % (0.0-0.5); Lymphocytes Absolute Auto 0.9 10^3/uL (1.2-3.8); Lymphocytes Percent Auto 5.8 % (20.5-60.0); Mean Corpuscular HGB Conc 32.8 g/dL (29.9-35.2); Mean Corpuscular Hemoglobin 26.6 pg (26.7-34.0); Mean Corpuscular Volume 81.1 fL (81.0-99.0); Mean Platelet Volume 10.7 fL (9.5-13.5); Monocytes Absolute Auto 0.7 10^3/uL (0.3-0.8); Monocytes Percent Auto 4.7 % (1.7-12.0); Neutrophils Absolute Auto 13.2 10^3/uL (1.4-6.5); Neutrophils Percent Auto 87.6 % (43.0-75.0); Platelet Count 324 10^3/uL (150-450); Red Cell Distribution Width 13.7 % (11.0-15.0); White Blood Count 15.1 10^3/uL (4.0-11.0)
[2024-04-02 19:48] LABS: Alanine Aminotransferase 13 U/L (14-59); Albumin Globulin Ratio 0.9; Albumin Level 3.5 g/dL (3.4-5.0); Alkaline Phosphatase 113 U/L (46-116); Anion Gap 15.1; Aspartate Amino Transferase 13 U/L (15-37); BUN Creatinine Ratio 17.3; Bilirubin Total 0.5 mg/dL (0.2-1.0); Calcium 8.2 mg/dL (8.5-10.1); Carbon Dioxide 24.4 mmol/L (21.0-32.0); Chloride 103 mmol/L (98-107); Estimated GFR (African America >60 (>=60); Estimated GFR (Non-African Ame >60 (>=60); Globulin 3.7 g/dL; Glucose 164 mg/dL (74-106); Potassium 3.5 mmol/L (3.5-5.1); Sodium 139 mmol/L (136-145); Total Protein 7.2 g/dL (6.4-8.2)
[2024-04-02 19:50] LABS: Amylase 31 U/L (25-115); Bilirubin Direct 0.1 mg/dL (0.0-0.2); Troponin I High Sensitivity <4.0 pg/mL (4.0-51.3)
[2024-04-02 19:57] LABS: HCG Qualitative NEGATIVE (NEGATIVE); Internal Control Within Normal Limits
[2024-04-02] MEDS: ONDANSETRON PF 4 MG/2 ML VIAL IV (21:57)
[2024-04-02] MEDS: MORPHINE SULFATE 4 MG/ML VIAL IV (21:57)
== END 2024-04-02 22:15 | disposition home or self-care (01) ==
PROVIDERS: Emergency Provider Emergency Medicine
DX: R10.9 Unspecified abdominal pain (principal)
CPT/HCPCS: 36415; 74177; 80048; 80076; 82150; 83690; 84484; 84703; 85025; 93005; 96374; 96375; 99285; Q9967